=== PATIENT | male | born 1960 | race Caucasian/White ===

== ENCOUNTER 2016-09-23 12:17 | Observation (INO) | payer BC ==
[2016-09-16 10:15] VITALS: BMI 25.5
[~2016-09-23 12:17] MED LIST: ASPIRIN 325 MG TAB PO ONE; SODIUM CHLORIDE 0.9% 1,000 ML in EMPTY BAG 1 BAG IV ONE
[2016-09-23] MEDS ORDERED: SODIUM CHLORIDE 0.9% 1,000 ML IV ONE (12:54)
[2016-09-23 12:55] LABS: Basophils % (A) 1 %; CH 32.4; CHCM 33.5; Eosinophils # (A) 0.3 k/uL (0-0.7); Eosinophils % (A) 4 %; HCT 46.5 % (39.0-53.0); HDW 2.55; HGB 15.5 gm/dL (13.0-17.5); Luc # (Auto) 0.16; Luc % (Auto) 2; Lymphocytes # (A) 2.5 k/uL (1.0-4.8); Lymphocytes % (A) 28 %; MCH 32.4 pg (25.0-35.0); MCHC 33.3 g/dL (31.0-37.0); MCV 97.2 fL (80.0-100.0); Mean Platelet Volume 6.6; Monocytes # (A) 0.4 k/uL (0-1.0); Monocytes % (A) 4 %; Neutrophils # (A) 5.7 k/uL (1.3-7.7); Neutrophils % (A) 62 %; RBC 4.78 m/uL (4.30-5.90); WBC 9.1 k/uL (3.8-10.6); WBC (Perox) 9.55
[2016-09-23 13:46] LABS: Anion Gap 11 mmol/L; Blood Urea Nitrogen 15 mg/dL (9-20); Calcium 9.1 mg/dL (8.4-10.2); Carbon Dioxide 25 mmol/L (22-30); Chloride 106 mmol/L (98-107); Glucose 89 mg/dL (74-99); Non-African American GFR(MDRD) >60 (>60 ml/min/1.73 sqM); Potassium 4.1 mmol/L (3.5-5.1); Sodium 142 mmol/L (137-145)
[2016-09-23] MEDS ORDERED: SODIUM CHLORIDE 0.9% 1,000 ML in EMPTY BAG 1 BAG IV ONE (17:11)
[2016-09-24] MEDS: ASPIRIN 325 MG TAB PO SCH (06:34)
[2016-09-24] MEDS ORDERED: IV FLUID CONTINUATION 1,000 ML IV ONE (07:45)
[2016-09-24] MEDS: MIDAZOLAM 2 MG/2 ML VIAL IV ONE ×2 (08:10→08:14)
[2016-09-24] MEDS: fentaNYL (PF) 50 MCG/ML 2 ML AMP IV ONE ×2 (08:12→09:12)
[2016-09-24] MEDS ORDERED: LIDOCAINE 2% INJ 20 MG/ML SQ ONE (08:12)
[2016-09-24] MEDS: hydrALAZINE HCL 20 MG/ML 1 ML VIAL IV ONE ×2 (08:31→09:10)
[2016-09-24] MEDS ORDERED: CLOPIDOGREL 75 MG TAB PO ONE (08:44)
[2016-09-24] MEDS ORDERED: MAG HYDROX/AL HYDROX/SIMETH 30 ML CUP PO ONE (09:07)
[2016-09-24] MEDS ORDERED: NITROGLYCERIN 1000MCG/10ML SYRINGE INTRAARTER ONE (09:15)
[2016-09-24] MEDS ORDERED: ONDANSETRON 4 MG/2 ML VIAL IVP ONE (09:27)
[2016-09-24] MEDS ORDERED: IODIXANOL 320 MG/ML 100 ML INTRAARTER ONE (09:28)
[2016-09-24] MEDS ORDERED: SODIUM CHLORIDE 0.9% 1,000 ML IV SCH (09:30)
[2016-09-24] MEDS ORDERED: HYDROmorphone 1 MG/ML 1 ML SYRINGE IVP PRN (09:42)
[2016-09-24] MEDS ORDERED: HYDROcodone/APAP 7.5-325MG 1 EACH TAB PO PRN (11:07)
[2016-09-24] MEDS: MAG HYDROX/AL HYDROX/SIMETH 30 ML CUP PO SCH ×3 (11:30→21:15)
[2016-09-24] MEDS: MULTIVITAMINS, THERA 1 EACH TAB PO SCH (11:30)
--- NOTE | 2016-09-24 14:44 | LTR ---
September 24, 2016 RE: Adonis Serra Dear Dr. Dias: Mr. Adonis Serra underwent successful atherectomy and balloon angioplasty of the left superficial femoral artery with a good angiographic result and without any complication. Thank you for allowing me to participate in his care and please do not hesitate to call if you have any questions or concerns. Sincerely, CONRAD CLEMENTE MD
--- NOTE | 2016-09-24 14:44 | PCN ---
DATE OF PROCEDURE: September 24, 2016. PERFORMING PHYSICIAN: Drake Villegas M.D., account receivable clerk. PROCEDURE PERFORMED: 1. Selective left common femoral artery angiogram. 2. Selective left superficial femoral artery angiogram. 3. Selective right common femoral artery angiogram. 4. An atherectomy of the left superficial femoral artery using the CSI device. 5. Successful balloon angioplasty of the left superficial femoral artery using 6.0 x 40 mm drug-coated balloon with a good angiographic results. INDICATION: This is a pleasant 56-year-old gentleman who was experiencing left leg discomfort consistent with intermittent claudication who underwent a peripheral angiogram a few years ago and that showed critical ostial left superficial femoral artery. He was brought today to undergo balloon angioplasty of the left SFA. Approach: Right common femoral artery. COMPLICATIONS: None. Level of sedation: Moderate. PROCEDURE DESCRIPTION: After obtaining informed consent, the patient was brought to the director of laboratory operations. The right common femoral artery was cannulated using micropuncture technique. The micropuncture wire passed easily, then I placed 6 Andorran sheath in the right common femoral artery. Subsequently did select the left SFA using an 0.035 advantage wire with a 5 Andorran rim catheter where I was able to advance advantage wire to the left profunda. Subsequently I did exchange my 11 cm 6 Andorran sheath into 55 cm 6 Andorran sheath using the advantage wire. The tip of the sheath was positioned in the left common femoral artery. At that point, anticoagulation was initiated using heparin and the patient was given a weight -based heparin, where he was given 8000 units of heparin IV. Also during the procedure he was given 600 mg of Plavix as well. Subsequently, I was able to cross the ostial left SFA using an 014 advantage wire with the back-up support of 0.014 QuickCross catheter. Subsequently, I exchanged my 0.14 advantage into a 014 ViperWire using 0.014 QuickCross catheter. Subsequently, I did multiple runs of rotational atherectomy using the CSI device. After that, I did balloon angioplasty using initially 6.0 x 40 mm AngioSculpt balloon which was inflated twice under its nominal pressure, subsequent I took 6.0 x 40 mm drug-coated balloon where the balloon was positioned under fluoroscopy guidance and the balloon inflated under its nominal pressure under 10 atmospheres for 3 minutes. The following angiogram showed non- flow-limiting dissection with a good angiographic result and residual stenosis of maybe 20% to 30% only. The procedure was completed at that point and then I did exchange my 55 cm 6 Andorran sheath into 11 cm 6 Andorran sheath using the advantage wire. Finally I did selective left common femoral artery angiogram. The procedure was completed without any complication. POSTPROCEDURE MANAGEMENT: 1. Dual antiplatelet therapy. 2. Risk factor modifications. 3. Follow up with the patient.
[2016-09-24] MEDS ORDERED: ATORVASTATIN 80 MG TAB PO SCH (21:00)
[2016-09-25 00:46] VITALS: RESP 18
[2016-09-25 06:45] LABS: Basophils % (A) 0 %; CHCM 34.1; Eosinophils # (A) 0.1 k/uL (0-0.7); Eosinophils % (A) 1 %; HCT 47.9 % (39.0-53.0); HDW 2.26; HGB 15.5 gm/dL (13.0-17.5); Luc # (Auto) 0.14; Luc % (Auto) 1; Lymphocytes # (A) 1.8 k/uL (1.0-4.8); Lymphocytes % (A) 14 %; MCH 31.4 pg (25.0-35.0); MCHC 32.3 g/dL (31.0-37.0); MCV 97.1 fL (80.0-100.0); Mean Platelet Volume 7.6; Monocytes # (A) 0.9 k/uL (0-1.0); Monocytes % (A) 7 %; Neutrophils # (A) 9.8 k/uL (1.3-7.7); Neutrophils % (A) 77 %; RBC 4.94 m/uL (4.30-5.90); RDW 12.9 % (11.5-15.5); WBC 12.8 k/uL (3.8-10.6); WBC (Perox) 12.38
[2016-09-25 06:53] LABS: Anion Gap 11 mmol/L; Blood Urea Nitrogen 9 mg/dL (9-20); Calcium 9.1 mg/dL (8.4-10.2); Carbon Dioxide 24 mmol/L (22-30); Chloride 106 mmol/L (98-107); Glucose 112 mg/dL (74-99); Non-African American GFR(MDRD) >60 (>60 ml/min/1.73 sqM); Potassium 4.3 mmol/L (3.5-5.1); Sodium 141 mmol/L (137-145)
[2016-09-25] MEDS ORDERED: NON-FORMULARY DRUG (Aspirin Ec 325 MG) PO SCH (09:00)
[2016-09-25] MEDS ORDERED: CLOPIDOGREL 75 MG TAB PO SCH (09:00)
[2016-09-25] MEDS: MAG HYDROX/AL HYDROX/SIMETH 30 ML CUP PO SCH ×2 (09:34→09:36)
[2016-09-25] MEDS: MULTIVITAMINS, THERA 1 EACH TAB PO SCH (09:34)
[2016-09-25] MEDS: ASPIRIN 325 MG TAB PO SCH (09:34)
[2016-09-25 13:12] VITALS: BP 132/88; PULSE 94; TEMP 98
--- NOTE | 2016-09-25 16:50 | IR ---
EXAMINATION TYPE: IR charter boat captain femoral popliteal DATE OF EXAM: 09/24/2016 9:51 AM COMPARISON: NONE HISTORY: Peripheral vascular disease Fluoroscopy support supplied to the referring clinician. See dictated report from the cardiology, 16 .7 minutes fluoroscopy time, 237 intraoperative C-arm images document the procedure
--- NOTE | 2016-09-26 09:42 | DS ---
DATE OF ADMISSION: 09/23/2016 DATE OF DISCHARGE: 09/25/2016 BRIEF HISTORY: This is a pleasant 56-year-old gentleman who was experiencing severe left leg discomfort consistent with claudication and underwent a peripheral angiogram which showed critical left ostial left SFA. He was admitted to the hospital yesterday and underwent successful atherectomy and balloon angioplasty of the left SFA with a good angiographic result and without any complication. On follow-up with him today, he seems to be doing good. The right groin is soft and nontender and without any bruises. The patient is going to be discharged home on dual antiplatelet therapy and I will follow up with the patient as an outpatient.
== END 2016-09-25 13:19 | disposition home or self-care (01) ==
LOC: CATHCVL 12:17 → 6SEL 12:18
PROVIDERS: ADMIT Internal Medicine Interventional Cardiology; ATTEND Internal Medicine Interventional Cardiology
DX: I73.9 Peripheral vascular disease, unspecified (principal); I87.8 Other specified disorders of veins; F17.210 Nicotine dependence, cigarettes, uncomplicated; E78.5 Hyperlipidemia, unspecified
CPT/HCPCS: 37225 ×2; 80048 ×2; 85025 ×2; G0378 ×3; C1894 ×2; C1769 ×7; C1714; C1725; C1887; C2623; J2001; J2250; J0360; Q9967; J2405; J3010; J1170; J1644

== ENCOUNTER → 2016-12-07 | Outpatient (CLI) | payer BC ==
--- NOTE | 2016-12-07 16:15 | MR ---
EXAMINATION TYPE: MR lumbar spine wo con DATE OF EXAM: 12/07/2016 11:08 AM COMPARISON: NONE HISTORY: Back pain TECHNIQUE: Multiplanar, multisequence images of the lumbar spine were acquired. T12-L1: There is a central posterior disc herniation causing anterior mass effect on the thecal sac. No significant foraminal encroachment. L1-L2: Broad-based posterior disc bulge causes mild anterior mass effect on the thecal sac. Facet art hropathy causes posterior lateral mass effect on the thecal sac. No significant central stenosis or f oraminal encroachment. L2-L3: Eccentric disc bulge towards the left causes anterolateral mass effect on the thecal sac. Ther e is some facet arthropathy. No significant central stenosis or foraminal encroachment. L3-L4: Posterior broad-based disc bulge causes mild anterior mass effect on the thecal sac. There is facet arthropathy with hypertrophy of the ligamentum flavum resulting in lateral recess stenosis. Sterling e mild foraminal encroachment is present right greater than left. No significant central stenosis. L4-L5: Broad-based posterior disc bulge causes minimal anterior mass effect on the thecal sac. There are facet arthropathy changes. No significant central canal stenosis. The spinal curvature may contri bute with some right-sided extension of endplate disc complex results in foraminal encroachment. L5-S1: Posterior central disc herniation causes contact with the anterior thecal sac, there is latera l extension of endplate disc complex causing foraminal encroachment right greater than left. Lumbar segments are intact. No paraspinal masses are identified. Conus medullaris has a normal appe arance. There is loss of disc height at the intervertebral levels, loss of disc signal is present wit h associated vacuum phenomenon, there is multilevel spondylosis with endplate discogenic marrow signa l change. There is a spinal curvature present. The conus is at T12-L1 shows an unremarkable appearanc e. IMPRESSION: Degenerative disc disease, facet arthropathy, scoliosis, foraminal encroachment as described.
== END | disposition home or self-care (01) ==
LOC: RADMRIMAIN 10:26
PROVIDERS: ATTEND Internal Medicine
DX: M51.36 Other intervertebral disc degeneration, lumbar region (principal); M46.96 Unspecified inflammatory spondylopathy, lumbar region; M41.9 Scoliosis, unspecified
CPT/HCPCS: 72148

== ENCOUNTER 2016-12-18 09:00 | Day surgery (SDC) | payer BC ==
[2016-12-15 17:33] VITALS: BMI 35.6
[~2016-12-18 09:00] MED LIST changes: +ALPRAZolam 0.25 MG TAB PO PRN; -ASPIRIN 325 MG TAB PO ONE; +ASPIRIN 325 MG TAB PO STA
[2016-12-18 09:19] VITALS: TEMP 98.1
[2016-12-18 09:32] LABS: Basophils # (A) 0.1 k/uL (0-0.2); Basophils % (A) 1 %; CH 32.5; CHCM 33.8; Eosinophils # (A) 0.2 k/uL (0-0.7); Eosinophils % (A) 3 %; HDW 2.29; HGB 15.1 gm/dL (13.0-17.5); Luc # (Auto) 0.14; Luc % (Auto) 2; Lymphocytes # (A) 1.7 k/uL (1.0-4.8); Lymphocytes % (A) 25 %; MCH 31.7 pg (25.0-35.0); MCHC 32.8 g/dL (31.0-37.0); MCV 96.6 fL (80.0-100.0); Mean Platelet Volume 7.3; Monocytes # (A) 0.3 k/uL (0-1.0); Monocytes % (A) 5 %; Neutrophils # (A) 4.3 k/uL (1.3-7.7); Neutrophils % (A) 64 %; RBC 4.76 m/uL (4.30-5.90); WBC 6.8 k/uL (3.8-10.6); WBC (Perox) 7.36
[2016-12-18 09:39] LABS: Anion Gap 9 mmol/L; Blood Urea Nitrogen 16 mg/dL (9-20); Calcium 9.1 mg/dL (8.4-10.2); Carbon Dioxide 23 mmol/L (22-30); Chloride 112 mmol/L (98-107); Glucose 97 mg/dL (74-99); Non-African American GFR(MDRD) >60 (>60 ml/min/1.73 sqM); Potassium 4.4 mmol/L (3.5-5.1); Sodium 144 mmol/L (137-145)
[2016-12-18] MEDS ORDERED: MIDAZOLAM 2 MG/2 ML VIAL IV ONE (11:31)
[2016-12-18] MEDS ORDERED: LIDOCAINE 2% INJ 20 MG/ML SQ ONE (11:38)
[2016-12-18] MEDS ORDERED: VERAPAMIL SYRINGE (5 MG/10 ML) INTRAARTER ONE (11:44)
[2016-12-18] MEDS ORDERED: IODIXANOL 320 MG/ML 100 ML INTRAARTER ONE (12:00)
[2016-12-18] MEDS ORDERED: SODIUM CHLORIDE 0.9% 1,000 ML IV SCH (12:15)
[2016-12-18 13:21] VITALS: RESP 16
[2016-12-18 16:36] VITALS: BP 153/88; PULSE 65
--- NOTE | 2016-12-18 21:59 | LTR ---
December 18, 2016 RE: Adonis Serra Dear Dr. Dias: Mr. Adonis Serra underwent a peripheral angiogram which showed heavy calcified and severe lesion involving the right common femoral artery and radiating behind his right leg discomfort and numbness. I want to schedule the patient to undergo an atherectomy and balloon angioplasty of the lesion. Thank you for allowing me to participate in his care and please do not hesitate to call if you have any questions or concerns. Sincerely, CONRAD CLEMENTE MD
--- NOTE | 2016-12-18 22:05 | PCN ---
DATE OF PROCEDURE: 12/18/2016 PERFORMING PHYSICIAN: Drake Villegas M.D., supervisor type photography. PROCEDURES PERFORMED: 1. Abdominal aortogram. 2. Bilateral lower extremity runoff. INDICATION: This is a pleasant 56-year-old gentleman who sees Dr. Zeke Nelson as an outpatient who underwent successful angioplasty of the left SFA in the past. He continues to have right leg discomfort. On physical examination I could ( ) feel good pulse in the right leg and he was brought today for peripheral angiogram. APPROACH: Right radial artery. COMPLICATIONS: None. LEVEL OF SEDATION: Moderate with sedation for length of half an hour. PROCEDURE DESCRIPTION: After obtaining informed consent, the patient was brought to the cardiac laborer tan house. The right radial artery was cannulated using micropuncture technique. The micropuncture wire passed easily, then I placed a 5 Bermudian sheath in the right radial artery. Subsequently I did an abdominal aortogram and bilateral lower extremity runoff using 5 Bermudian pigtail catheter, which was initially placed at the level of the renal arteries, then it was advanced into above the bifurcation of the aorta to right and left common iliac arteries. The procedure was completed without any complication. SELECTIVE PERIPHERAL ANGIOGRAM: 1. Abdominal aorta appeared to have mild disease only. 2. Common iliac arteries. The right and left common iliac arteries appear to have mild disease only. 3. Internal iliac arteries. The right and left internal iliac arteries appear to have mild disease only. 4. External iliac arteries. The right and left external iliac arteries appear to have mild disease only. 5. Common femoral arteries. The right common femoral artery appeared to have an eccentric calcified lesion in the range of 80%. The left common femoral artery appeared to have mild disease only. 6. SFA. The right SFA appeared to have mild to moderate diffuse disease and the left SFA appeared to have mild disease as well. 7. Popliteals. The right and left popliteals appeared to have mild disease only. 8. Below the knee. There is 3-vessel runoff below the knee bilaterally. CONCLUSION: 1. Calcified eccentric lesion that seems to be severe involving the right common femoral artery. 2. Patent proximal left SFA after balloon angioplasty and atherectomy. POST-PROCEDURE MANAGEMENT: The patient will be scheduled to undergo an atherectomy and balloon angioplasty of the right common femoral artery.
--- NOTE | 2016-12-24 15:43 | IR ---
EXAMINATION TYPE: IR angio abdominal w runoff DATE OF EXAM: 12/18/2016 12:22 PM COMPARISON: NONE HISTORY: Left leg pain TECHNIQUE: Fluoroscopy. FINDINGS: Fluoroscopic guidance was provided during procedure performed by Dr. Steele. A total of 8. 8 minutes of fluoroscopic time was utilized during the procedure and multiple spot images was acquire d. IMPRESSION: Documentation of fluoroscopy. Please see report from cardiology.
== END 2016-12-18 17:03 | disposition home or self-care (01) ==
LOC: CATHCVL 09:00
PROVIDERS: ATTEND Internal Medicine Interventional Cardiology
DX: I70.211 Atherosclerosis of native arteries of extremities with intermittent claudication, right leg (principal); E78.5 Hyperlipidemia, unspecified; F17.210 Nicotine dependence, cigarettes, uncomplicated; Z79.82 Long term (current) use of aspirin; Z79.899 Other long term (current) drug therapy; Z79.02 Long term (current) use of antithrombotics/antiplatelets; Z79.891 Long term (current) use of opiate analgesic
CPT/HCPCS: 36200; 75625; 75716; 80048; 85025; 99152; 99153; C1894; J2001; J2250; Q9967; J1644

== ENCOUNTER 2016-12-23 10:55 | Day surgery (SDC) | payer BC ==
[2016-12-22 11:26] VITALS: BMI 25.0
[~2016-12-23 10:55] MED LIST changes: -ALPRAZolam 0.25 MG TAB PO PRN; -ASPIRIN 325 MG TAB PO STA
[2016-12-23] MEDS ORDERED: MIDAZOLAM 2 MG/2 ML VIAL IV ONE (12:05)
[2016-12-23] MEDS ORDERED: LIDOCAINE 2% INJ 20 MG/ML SQ ONE (12:11)
[2016-12-23] MEDS ORDERED: CLOPIDOGREL 75 MG TAB PO ONE (12:47)
[2016-12-23] MEDS ORDERED: IODIXANOL 320 MG/ML 100 ML INTRAARTER ONE (12:50)
[2016-12-23] MEDS ORDERED: SODIUM CHLORIDE 0.9% 1,000 ML IV SCH (13:30)
[2016-12-23] MEDS ORDERED: hydrALAZINE HCL 20 MG/ML 1 ML VIAL ONE (14:42)
[2016-12-23] MEDS ORDERED: hydrALAZINE HCL 20 MG/ML 1 ML VIAL IV ONE (14:47)
[2016-12-23] MEDS ORDERED: HYDROmorphone 1 MG/ML 1 ML SYRINGE ONE (15:11)
[2016-12-23] MEDS ORDERED: HYDROmorphone 1 MG/ML 1 ML SYRINGE IVP PRN (15:13)
[2016-12-23] MEDS ORDERED: ATORVASTATIN 40 MG TAB PO SCH (21:00)
[2016-12-24 06:30] LABS: Non-African American GFR(MDRD) >60 (>60 ml/min/1.73 sqM)
--- NOTE | 2016-12-24 06:49 | PCN ---
DATE OF PROCEDURE: 12/23/2016 PERCUTANEOUS PERIPHERAL INTERVENTION PERFORMING PHYSICIAN: Drake Villegas MD, composition instructor. PROCEDURE PERFORMED: 1. Selective right common femoral artery angiogram. 2. An atherectomy of the right common femoral artery using the CSI device. 3. Successful balloon angioplasty of the right common femoral artery using 7.0 x 40 mm drug-coated balloon with a good angiographic result. 4. Selective left common femoral artery angiogram. INDICATION: This is a pleasant 56-year-old male patient who was experiencing right leg discomfort consistent with intermittent claudication. He underwent a peripheral angiogram a few weeks ago and that showed heavily calcified eccentric lesion involving the right common femoral artery. The patient was brought today to undergo a balloon angioplasty of the right common femoral artery. APPROACH: Left common femoral artery. COMPLICATIONS: None. LEVEL OF SEDATION: Moderate. PROCEDURE DESCRIPTION: After obtaining an informed consent, the patient was brought to the cardiac clinical lab specialist. The left common femoral artery was cannulated using micropuncture technique. Micropuncture wire passed easily. Then I placed 6-Kosovan sheath in the left common femoral artery. Subsequently, I did selective right SFA using an 0.035 advantage wire with a 5-Kosovan rim catheter. After that, I did exchange my 11 cm 6-Kosovan sheath into 70 cm 6-Kosovan sheath over the advantage wire where the tip of the sheath was positioned in the right external iliac artery. After that, I did exchange my 0.035 advantage wire into an 0.014 ViperWire preparing for atherectomy. Anticoagulation was initiated using heparin. The patient was given 8000 units of heparin IV. After that, I did multiple runs of rotational atherectomy of the right common femoral artery using the CSI device. After that, I did balloon angioplasty using an AngioSculpt, which was 6.0 x 40 then I used drug-coated balloon which was 7.0 x 40 mm drug-coated balloon. The following angiogram showed an excellent angiographic result. After that, I did exchange my 70 cm a 6-Kosovan sheath into 11 cm 6-Kosovan sheath over the advantage wire. I did selective left common femoral artery angiogram before the procedure was completed. POSTPROCEDURE MANAGEMENT: 1. Dual antiplatelet therapy. 2. Risk factor modifications. 3. Will follow up with the patient.
--- NOTE | 2016-12-24 06:51 | LTR ---
December 23, 2016 ELIZABETH DIAS MD RE: Adonis Serra Dear Dr. Dias: Mr. Lamb Maryse underwent successful balloon angioplasty of the right femoral artery with a good angiographic result and without any complication. Thank you for allowing me to participate in his care and please do not hesitate to call if you have any question or concern. Sincerely, CONRAD CLEMENTE MD
[2016-12-24] MEDS ORDERED: CLOPIDOGREL 75 MG TAB PO SCH (09:00)
[2016-12-24] MEDS ORDERED: ASPIRIN 325 MG TAB PO SCH (09:00)
[2016-12-24] MEDS ORDERED: traMADol 50 MG TAB PO SCH (09:00)
[2016-12-24 09:30] LABS: CH 32.1; CHCM 33.2; HCT 43.6 % (39.0-53.0); HDW 2.23; HGB 14.9 gm/dL (13.0-17.5); MCH 33.3 pg (25.0-35.0); MCHC 34.3 g/dL (31.0-37.0); MCV 97.2 fL (80.0-100.0); Mean Platelet Volume 7.1; RBC 4.48 m/uL (4.30-5.90); RDW 13.3 % (11.5-15.5); WBC 8.8 k/uL (3.8-10.6)
[2016-12-24 09:38] LABS: Anion Gap 9 mmol/L; Blood Urea Nitrogen 14 mg/dL (9-20); Calcium 9.4 mg/dL (8.4-10.2); Carbon Dioxide 22 mmol/L (22-30); Chloride 107 mmol/L (98-107); Glucose 105 mg/dL (74-99); Potassium 4.5 mmol/L (3.5-5.1); Sodium 138 mmol/L (137-145)
[2016-12-24 10:29] VITALS: BP 130/70; PULSE 87; RESP 18; TEMP 97.4
--- NOTE | 2016-12-24 10:32 | P.DS ---
Providers Date of admission: December 232016 Attending physician: Drake Villegas Primary care physician: [facility] Course: This is a pleasant 56-year-old gentleman who was admitted to the hospital yesterday and underwent successful atherectomy and balloon angioplasty of the right common femoral artery with a good angiographic results and without any complication. The procedure was performed from the left groin which seems to be slightly bruised because the patient developed hematoma yesterday. There is no discrete hematoma was seen today. The groin is not tender at all. The patient is going to be discharged home on dual antiplatelet therapy and I will follow-up with him in the office next week. Plan - Discharge Summary Discharge Medication List Multivitamins, Thera [Multivitamin (formulary)] 1 tab PO DAILY 09/10/16 [History ] Aspirin EC [Ecotrin] 325 mg PO DAILY 09/23/16 [History] Clopidogrel [Plavix] 75 mg PO DAILY #90 tab 09/25/16 [Rx] Ibuprofen [Motrin] 800 mg PO TID PRN 12/15/16 [History] traMADol HCl [Ultram] 50 mg PO DAILY 12/15/16 [History] Atorvastatin [Lipitor] 40 mg PO HS 12/22/16 [History] Follow up Appointment(s)/Referral(s): Drake Villegas MD [STAFF PHYSICIAN] - 01/04/17 4:30 pm Patient Instructions/Handouts: *Surgery [facility] - After Heart Catheterization - Risk Investigator Instructions, Peripheral Vascular Stent Placement (DC)
[2016-12-24] MEDS ORDERED: MULTIVITAMINS, THERA 1 EACH TAB PO SCH (12:00)
--- NOTE | 2016-12-24 15:42 | IR ---
EXAMINATION TYPE: IR travel pta femoral popliteal DATE OF EXAM: 12/23/2016 1:14 PM COMPARISON: NONE HISTORY: Left leg pain TECHNIQUE: Fluoroscopy. FINDINGS: Fluoroscopic guidance was provided during procedure performed by Dr. Steele. A total of 8. 8 minutes of fluoroscopic time was utilized during the procedure and multiple spot images was acquire d. Images demonstrate percutaneous balloon angioplasty. IMPRESSION: Documentation of fluoroscopy. Please see report from cardiology.
== END 2016-12-24 10:54 | disposition home or self-care (01) ==
LOC: CATHCVL 10:55 → 6SEL 16:08 → CATHCVL 12-24 10:54
PROVIDERS: ATTEND Internal Medicine Interventional Cardiology
DX: I70.211 Atherosclerosis of native arteries of extremities with intermittent claudication, right leg (principal); F17.210 Nicotine dependence, cigarettes, uncomplicated; E78.5 Hyperlipidemia, unspecified; Z79.02 Long term (current) use of antithrombotics/antiplatelets; Z79.82 Long term (current) use of aspirin; Z79.1 Long term (current) use of non-steroidal anti-inflammatories (NSAID); Z79.891 Long term (current) use of opiate analgesic; Z79.899 Other long term (current) drug therapy
CPT/HCPCS: 37225; 80048; 85027; 99152; 99153 ×2; C1894 ×2; C1714; C1769 ×6; C1725; C1887; C2623; J2001; J2250; J0360; Q9967; J1170; J1644

== ENCOUNTER → 2018-01-20 | Outpatient (CLI) | payer BC ==
--- NOTE | 2018-01-20 14:24 | XR ---
EXAMINATION TYPE: XR chest 2V DATE OF EXAM: 01/20/2018 COMPARISON: NONE HISTORY: Cough and congestion for one week TECHNIQUE: Frontal and lateral views of the chest are obtained. FINDINGS: There is no focal air space opacity, pleural effusion, or pneumothorax seen. The cardiac silhouette size is within normal limits. The osseous structures are intact. Mild multilevel degener ative changes of the thoracic spine are noted. IMPRESSION: No acute cardiopulmonary process.
== END | disposition home or self-care (01) ==
LOC: RADXRYALE 13:15
PROVIDERS: ATTEND Internal Medicine
DX: J20.9 Acute bronchitis, unspecified (principal)
CPT/HCPCS: 71046

== ENCOUNTER → 2018-04-22 | Day surgery (SDC) | payer BC ==
[2018-04-20 12:22] VITALS: BMI 26.3
[~2018-04-22] MED LIST changes: +LACTATED RINGERS 1,000 ML IV SCH; +LIDOCAINE 1% 20 ML VIAL (10MG/ML) FOR IV START INTRADERMA ONE; +PROPOFOL 10 MG/ML 20 ML VIAL IV ONE; -SODIUM CHLORIDE 0.9% 1,000 ML in EMPTY BAG 1 BAG IV ONE
[2018-04-22 10:46] VITALS: RESP 16; TEMP 98.6
--- NOTE | 2018-04-22 11:46 | P.PCN ---
Date of Procedure: 04/22/18 Procedure(s) Performed: BRIEF HISTORY: Patient is a 57-year-old pleasant, white male, scheduled for an elective colonoscopy as a part of evaluation of prior history of colon polyps. Last colonoscopy was 3 years ago. PROCEDURE PERFORMED: Colonoscopy with snare polypectomy. PREOPERATIVE DIAGNOSIS: History of colon polyps. IV sedation per Anesthesia. PROCEDURE: After informed consent was obtained, the patient, was brought into the endoscopy unit. IV sedation was administered by Anesthesia under continuous monitoring. Digital rectal examination was normal. Initially the Olympus CF- 160 flexible video colonoscope was then inserted in the rectum, gradually advanced into the cecum without any difficulty. Careful examination was performed as the scope was gradually being withdrawn. Ileocecal valve and the appendiceal orifice were visualized and appeared normal. Prep was excellent. Mucosa of the cecum, appeared normal. In the ascending colon there was a 1 cm flat polyp removed by snare polypectomy. The rest of the ascending colon, transverse colon, descending colon, appeared normal. In the sigmoid colon there was a 5 mL polyp that was removed by snare polypectomy. Rest of the sigmoid colon, and rectum appeared normal. Retroflexion was performed in the rectum and no lesions were seen. The patient tolerated the procedure well. IMPRESSION: 1 cm flat ascending colon polyp status post polypectomy 5 mm sessile sigmoid colon polyp status post polypectomy RECOMMENDATIONS: Findings of this examination were discussed with the patient as well as his family. He was advised to follow with the biopsy results. If the biopsy shows a tubular adenoma he can have a repeat colonoscopy in 3-5 years.
[2018-04-22 12:09] VITALS: BP 163/110; PULSE 83
== END ==
LOC: ORWHC2ENDO 09:21
PROVIDERS: ATTEND Internal Medicine Gastroenterology
DX: Z12.11 Encounter for screening for malignant neoplasm of colon (principal); K63.5 Polyp of colon; Z86.010 Personal history of colon polyps; Z79.02 Long term (current) use of antithrombotics/antiplatelets; Z79.82 Long term (current) use of aspirin; E78.5 Hyperlipidemia, unspecified; Z98.62 Peripheral vascular angioplasty status; F17.200 Nicotine dependence, unspecified, uncomplicated; Z79.899 Other long term (current) drug therapy
CPT/HCPCS: 88305; 45385; J2704

== ENCOUNTER 2019-06-07 07:10 | Day surgery (SDC) | payer BC ==
[2019-06-02 10:33] VITALS: BMI 26.9
[~2019-06-07 07:10] MED LIST changes: -LACTATED RINGERS 1,000 ML IV SCH; -LIDOCAINE 1% 20 ML VIAL (10MG/ML) FOR IV START INTRADERMA ONE; -PROPOFOL 10 MG/ML 20 ML VIAL IV ONE; +SODIUM CHLORIDE 0.9% 1,000 ML in EMPTY BAG 1 BAG IV ONE
[2019-06-07] MEDS ORDERED: ASPIRIN 325 MG TAB ONE (07:38)
[2019-06-07] MEDS ORDERED: ALPRAZolam 0.25 MG TAB ONE (07:38)
[2019-06-07 08:06] VITALS: RESP 16; TEMP 98.2
[2019-06-07 08:13] LABS: Basophils # (A) 0.1 k/uL (0-0.2); Basophils % (A) 1 %; Eosinophils # (A) 0.3 k/uL (0-0.7); Eosinophils % (A) 5 %; HCT 43.7 % (39.0-53.0); Lymphocytes # (A) 1.6 k/uL (1.0-4.8); Lymphocytes % (A) 21 %; MCH 31.9 pg (25.0-35.0); MCHC 34.3 g/dL (31.0-37.0); MCV 93.2 fL (80.0-100.0); Mean Platelet Volume 6.4; Monocytes # (A) 0.5 k/uL (0-1.0); Monocytes % (A) 6 %; Neutrophils % (A) 65 %; Platelet Count 246 k/uL (150-450); RBC 4.69 m/uL (4.30-5.90); RDW 13.3 % (11.5-15.5); WBC 7.7 k/uL (3.8-10.6)
[2019-06-07 08:28] LABS: African American GFR (CKD) >90 (>60 ml/min/1.73 sqM); Anion Gap 10 mmol/L; Blood Urea Nitrogen 18 mg/dL (9-20); Calcium 9.4 mg/dL (8.4-10.2); Carbon Dioxide 24 mmol/L (22-30); Chloride 106 mmol/L (98-107); Glucose 102 mg/dL (74-99); Potassium 4.5 mmol/L (3.5-5.1); Sodium 140 mmol/L (137-145)
[2019-06-07] MEDS ORDERED: MIDAZOLAM (PF) 2 MG/2 ML VIAL IV ONE (08:34)
[2019-06-07] MEDS ORDERED: LIDOCAINE 1% INJ 10MG/ML (20 ML MDV) SQ ONE (08:36)
[2019-06-07] MEDS ORDERED: IOPAMIDOL-250 100ML BTL INTRAARTER ONE (08:45)
--- NOTE | 2019-06-07 08:57 | P.PCN ---
Date of Procedure: 06/07/19 Operative Findings: AN ABDOMINAL AORTOGRAM AND BILATERAL LOWER EXTREMITIES RUNOFF PERFORMING PHYSICIAN: Drake Villegas MD PROCEDURE PERFORMED: 1. An abdominal aortogram 2. Bilateral lower extremities runoff INDICATION: This is a pleasant 58-year-old gentleman with known peripheral arterial disease and prior intervention on the right common femoral artery as well as left superficial femoral artery in the past was experiencing symptoms of right leg intermittent claudication. He underwent an arterial duplex study which revealed severe disease involving the right common femoral artery. I was brought today to undergo an aortogram with runoff for more clarification. COMPLICATION: None LEVEL OF SEDATION: Moderate was sedation length of 15 minutes APPROACH: Left common femoral artery PROCEDURE DESCRIPTION: After obtaining informed consent and explaining the procedure benefits, risks, and complications, the patient was brought to the cardiac ammunition assembly ii laborer. The left groin was prepped and draped in sterile fashion. The left common femoral artery was cannulated using micropuncture technique, under ultrasound guidance. A micropuncture wire was advanced, and the micropuncture sheath was advanced over the wire, then the micropuncture sheath was exchanged over an 0.35 wire into a 5-Angolan sheath dilator assembly then the wire and dilator were removed and sheath was flushed. We did an abdominal aortogram and bilateral lower extremities runoff using 5- Angolan pigtail catheter using a power injection. The catheter was initially placed at the level of the renal arteries, and it was pulled into above the bifurcation of the aorta into right and left common iliac arteries. The procedure was completed and there was no complications. SELECTIVE PERIPHERAL ANGIOGRAM: The abdominal aorta: Appeared to be angiographically normal. The common iliac arteries: Both are angiographically normal. The external iliac arteries: Both are angiographically normal. The internal iliac arteries: Both are patent. The common femoral arteries: The right common femoral artery has a critical calcified and eccentric lesion. The left common femoral artery is calcified with intermediate lesion only. Superficial femoral arteries: Both SFA have mild disease only. Popliteal arteries: Both popliteal are patent. Below the knees: There are 3 vessels run off below the knee bilaterally. CONCLUSION: #1 critical disease involving the right common femoral artery with eccentric and calcified lesion. #2 intermediate disease involving the left common femoral artery POSTPROCEDURE MANAGEMENT: #1 the patient is going to be discharged home later on today. #2 follow-up with the patient in the office next week #3 right common femoral artery revascularization, probably surgically.
[2019-06-07] MEDS ORDERED: SODIUM CHLORIDE 0.9% 1,000 ML IV SCH (09:00)
[2019-06-07] MEDS ORDERED: hydrALAZINE HCL 20 MG/ML 1 ML VIAL ONE (10:12)
[2019-06-07] MEDS ORDERED: ENALAPRILAT 1.25 MG/ML 1 ML VIAL ONE (10:12)
[2019-06-07] MEDS ORDERED: HYDROcodone/APAP 10-325MG 1 EACH TAB PO ONE (11:05)
[2019-06-07 14:45] VITALS: BP 130/72; PULSE 87
--- NOTE | 2019-06-08 15:54 | IR ---
Fluoroscopy HISTORY: Pain in right leg 0.6 minutes fluoroscopy time supplied to the referring clinician. 97 intraoperative C-arm images doc ument the procedure. See dictated report from cardiology.
== END 2019-06-07 14:45 | disposition home or self-care (01) ==
LOC: CATHCVL 07:10
PROVIDERS: ATTEND Internal Medicine Interventional Cardiology
DX: I70.213 Atherosclerosis of native arteries of extremities with intermittent claudication, bilateral legs (principal); I25.10 Atherosclerotic heart disease of native coronary artery without angina pectoris; E78.5 Hyperlipidemia, unspecified; F17.210 Nicotine dependence, cigarettes, uncomplicated; Z79.82 Long term (current) use of aspirin; Z79.899 Other long term (current) drug therapy; Z79.02 Long term (current) use of antithrombotics/antiplatelets
CPT/HCPCS: 36200; 75625; 75716; 76937; 80048; 85025; C1769 ×4; C1894; J0360; J2001; Q9966; J2250

== ENCOUNTER → 2020-06-18 | Outpatient (CLI) | payer OTHER | END | disposition home or self-care (01) | LOC: LABWHC1 10:28 | PROVIDERS: ATTEND Internal Medicine | DX: R05 Cough (principal) | CPT/HCPCS: U0003; C9803 ==

== ENCOUNTER → 2020-09-26 | Outpatient (CLI) | payer OTHER ==
--- NOTE | 2020-09-26 11:28 | MR ---
EXAMINATION TYPE: MR knee RT wo con DATE OF EXAM: 09/26/2020 COMPARISON: X-ray 09/03/2020 HISTORY: R knee pain TECHNIQUE: Multiplanar, multisequence imaging of the right knee is performed without IV contrast. FINDINGS: There is grade 3 abnormal signal involving the posterior horn of the medial meniscus compat ible with a complex tear. There is a cyst seen along the posterior margin of the posterior medial fem oral condyle with septation measuring 1.7 cm which may be within the bursa or possibly ganglion cyst. There is narrowing of the medial compartment of the knee joint and patellofemoral joint. There is gra de III chondromalacia of the medial femoral articular cartilage. Lateral meniscus is intact. Anterior cruciate and posterior cruciate ligaments intact. Medial collateral and lateral collateral ligaments intact. Posterior to the upper margin of the lateral femoral condyle there is multiple tiny cystic structures likely representing a 2.2 cm septated ganglion cyst. Fibrillation of the patellar cartilage seen with no sizable. Patellar and quadriceps tendons are inta ct. Small amount of prepatellar soft tissue edema noted inferiorly. No evidence of marrow edema or contusion. No acute fracture. IMPRESSION: 1. Complex tear posterior horn medial meniscus. 2. 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 Sma ll cystic structure measuring 1.7 cm with septation along the posterior margin of the medial femoral condyle may represent a small ganglion cyst or fluid within the bursa. 3. Patellofemoral attachment of the lateral gastrocnemius there is a 2.2 cm septated fluid collection likely related to a ganglion cyst.
== END | disposition home or self-care (01) ==
LOC: RADMRIMAIN 09:39
PROVIDERS: ATTEND Orthopaedic Surgery
DX: S83.241A Other tear of medial meniscus, current injury, right knee, initial encounter (principal); M17.11 Unilateral primary osteoarthritis, right knee; M94.261 Chondromalacia, right knee; M25.861 Other specified joint disorders, right knee

== ENCOUNTER → 2020-10-24 | Outpatient (CLI) | payer OTHER ==
[2020-10-24 08:57] LABS: Basophils # (A) 0.1 k/uL (0-0.2); Basophils % (A) 1 %; Eosinophils # (A) 0.1 k/uL (0-0.7); Eosinophils % (A) 2 %; HCT 52.4 % (39.0-53.0); HGB 17.3 gm/dL (13.0-17.5); Lymphocytes # (A) 1.9 k/uL (1.0-4.8); Lymphocytes % (A) 24 %; MCH 31.8 pg (25.0-35.0); MCHC 33.1 g/dL (31.0-37.0); MCV 95.9 fL (80.0-100.0); Mean Platelet Volume 6.7; Monocytes # (A) 0.5 k/uL (0-1.0); Monocytes % (A) 6 %; Neutrophils # (A) 5.2 k/uL (1.3-7.7); Neutrophils % (A) 65 %; Platelet Count 245 k/uL (150-450); RBC 5.46 m/uL (4.30-5.90); RDW 12.9 % (11.5-15.5); WBC 7.9 k/uL (3.8-10.6)
== END | disposition home or self-care (01) ==
LOC: LABWHC1 07:43
PROVIDERS: ATTEND Orthopaedic Surgery
DX: M23.91 Unspecified internal derangement of right knee (principal)
CPT/HCPCS: 36415; 80051; 85025; 93005

== ENCOUNTER 2020-11-06 07:55 | Day surgery (SDC) | payer OTHER ==
[2020-10-30 10:53] VITALS: BMI 28.8
--- NOTE | 2020-11-05 14:52 | HP ---
HISTORY AND PHYSICAL Surgery is scheduled for 11/06/2020. Adonis Serra is a 60-year-old gentleman seen with progressive right knee pain. We discussed options for treatment. He elected to proceed with arthroscopy. Consent was obtained. PAST MEDICAL HISTORY: Hyperlipidemia. PAST SURGICAL HISTORY: Oral surgery. DAILY MEDICATIONS: Atorvastatin. ALLERGIES: None. SOCIAL HISTORY: Smokes 1 pack of cigarettes daily. PHYSICAL EVALUATION OF RIGHT KNEE: Range of motion is -2 to 125. Mild effusion. Tenderness along the medial and lateral joint lines. Positive medial Gay's. Ligaments stable. Hip rotation without pain. Distal neurovascular exam is intact. Right knee radiographs reveal mild osteoarthritis. MRI right knee revealed a complex medial meniscal tear. IMPRESSION: 1. Internal derangement, right knee with medial meniscal tear. 2. Hyperlipidemia. PLAN: Right knee arthroscopy with partial meniscectomy, partial synovectomy and debridement. MMODL / IJN: [id number] /
[~2020-11-06 07:55] MED LIST changes: +DEXAMETHASONE SOD PHOSPHATE 4 MG/ML 1 ML VIAL IV PRN; +LACTATED RINGERS 1,000 ML IV SCH; +LIDOCAINE 1% (10MG/ML) FOR IV START INTRADERMA PRN; +ONDANSETRON 4 MG/2 ML VIAL IVP PRN; -SODIUM CHLORIDE 0.9% 1,000 ML in EMPTY BAG 1 BAG IV ONE
[2020-11-06] MEDS ORDERED: LACTATED RINGERS 1,000 ML IV ONE ×2 (08:13)
[2020-11-06] MEDS ORDERED: fentaNYL (PF) 50 MCG/ML 2 ML AMP ONE (10:42)
[2020-11-06] MEDS ORDERED: PROPOFOL 10 MG/ML 20 ML VIAL IV ONE (10:42)
[2020-11-06] MEDS ORDERED: HYDROmorphone (PF) 1 MG/ML ONE (10:42)
[2020-11-06] MEDS ORDERED: MIDAZOLAM 2 MG/2 ML VIAL ONE (10:42)
[2020-11-06] MEDS ORDERED: SUCCINYLCHOLINE CHLORIDE 100 MG/5 ML SYR IV ONE (10:42)
[2020-11-06] MEDS ORDERED: LIDOCAINE 1% INJ 10MG/ML (20 ML MDV) ONE (10:42)
[2020-11-06] MEDS ORDERED: BUPIVACAINE (PF) 0.25% 30 ML VIAL SQ ONE (10:51)
--- NOTE | 2020-11-06 11:52 | P.OP ---
Date of Procedure: 11/06/20 Preoperative Diagnosis: Internal derangement right knee Postoperative Diagnosis: 1. Medial meniscal tear right knee 2. 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 Reactive synovitis medial, lateral and suprapatellar compartments right knee Procedure(s) Performed: 1. Arthroscopic partial medial meniscectomy right knee 2. Arthroscopic chondroplasty medial femoral condyle right knee 3. Arthroscopic microfracture medial femoral condyle right knee 4. Arthroscopic partial synovectomy medial, lateral and suprapatellar compartments right knee Anesthesia: JOSEA, local Surgeon: Masoud Christianson Estimated Blood Loss (ml): 7 Pathology: none sent Condition: stable Disposition: PACU Indications for Procedure: 60-year-old gentleman seen with progressive right knee pain. After treatment options were discussed, he elected to proceed with arthroscopy. Operative Findings: See description of procedure Description of Procedure: Patient was taken to the operative suite. Patient underwent a general anesthetic by the department of anesthesia. Patient was given preoperative antibiotics. The right lower extremity was placed in a well-padded arthroscopic leg coyle. The right leg was prepped and draped in the normal sterile orthopedic fashion. A lateral parapatellar and suprapatellar incision was made. Trochars were inserted. Arthroscopy was initiated. Suprapatellar pouch revealed diffuse thick reactive synovitis. The patellofemoral joint appeared to articulate congruently. There as grade 2 chondromalacia of the femoral sulcus with no significant osteochondral tears present. The scope was guided into the medial gutter. There were no loose bodies and there was no plica. The scope was then guided into the medial compartment. A medial parapatellar incision was made. Trocar inserted followed by probe. Complex tear involving the posterior horn of the medial meniscus. There were grade 3/4 chondromalacia changes of the medial femoral condyle with some diffuse osteochondral tears present. There was some thick reactive synovitis anteriorly. I performed a partial medial meniscectomy getting down to stable meniscal tissue. I performed a chondroplasty medial femoral condyle getting down to stable osteochondral tissue. There did appear to be a area of exposed bone in the medial femoral condyle measuring approximately 1 cm diameter. I performed a partial synovectomy decompressing thick reactive synovitis anteriorly. I now performed a microfracture to the area of grade 4 chondromalacia medial femoral condyle centrally in the bone with resultant bleeding at the microfracture site. The residual meniscus was probed and found to be stable. The residual osteochondral surface was stable. There was good decompression of the synovitis. Scope and probe were then guided into the intercondylar notch. Cruciates were identified, probed and found to be stable. The scope and probe were then guided into lateral compartment. The lateral meniscus was probed and was found to be stab le. There was mild grade 1 chondromalacia changes lateral compartment. There was thick reactive synovitis anteriorly. I introduced a motorized shaver and performed a partial synovectomy decompressing thick reactive synovitis. The shaver was removed. There was good decompression of the synovitis. The scope was in guided back into the suprapatellar compartment. I introduced a motorized shaver into the super patellar compartment. I debrided some piecemeal fragments of meniscus I encountered. I performed a partial synovectomy decompressing the thick reactive synovitis. Shaver was removed. I took one more look around the entire knee, no residual debris. Instruments were now removed from the joint. The joint was infiltrated with .25% Marcaine. Steri-Strips were applied to the portal sites. Sterile dressings were applied. The patient was placed into a REBECCA hose. No tourniquet was utilized. The patient was awakened, transferred to a bed and taken to recovery stable satisfactory condition.
[2020-11-06 12:01] VITALS: TEMP 96.9
[2020-11-06] MEDS: HYDROmorphone 1 MG/ML 1 ML SYRINGE IVP ONE ×2 (12:14→12:20)
[2020-11-06] MEDS ORDERED: hydrALAZINE HCL 20 MG/ML 1 ML VIAL IVP ONE (12:38)
[2020-11-06 13:12] VITALS: RESP 20
[2020-11-06] MEDS ORDERED: HYDROcodone/APAP 5-325MG 1 EACH TAB ONE (13:19)
[2020-11-06] MEDS ORDERED: HYDROcodone/APAP 5-325MG 1 EACH TAB PO ONE (13:20)
[2020-11-06 14:12] VITALS: BP 142/88; PULSE 88
== END 2020-11-06 14:20 | disposition home or self-care (01) ==
LOC: OR 07:55
PROVIDERS: ATTEND Orthopaedic Surgery
DX: M23.221 Derangement of posterior horn of medial meniscus due to old tear or injury, right knee (principal); M65.861 Other synovitis and tenosynovitis, right lower leg; M94.261 Chondromalacia, right knee; I73.9 Peripheral vascular disease, unspecified; E78.5 Hyperlipidemia, unspecified; J45.909 Unspecified asthma, uncomplicated; F17.210 Nicotine dependence, cigarettes, uncomplicated; Z79.02 Long term (current) use of antithrombotics/antiplatelets; Z79.82 Long term (current) use of aspirin; Z79.899 Other long term (current) drug therapy
CPT/HCPCS: 29881; 29879; J2250; J0360; J1100; J0690; J2405; J2001; J3010; J1170; J0330; J2704

== ENCOUNTER 2021-02-09 11:58 | Emergency (ER) | payer OTHER ==
--- NOTE | 2021-02-09 12:33 | ED ---
General Adult HPI - General Chief complaint: Chest Pain Stated complaint: Difficulty Talking, Heaviness in Chest Time Seen by Provider: 02/09/21 12:10 Source: patient Mode of arrival: wheelchair Limitations: no limitations - History of Present Illness Initial comments: Dictation was produced using [employer] dictation software. please excuse any gramma tical, word or spelling errors. Chief Complaint: 60 year-old male presents to the emergency department for cough, pleuritic chest pain and constitutional symptoms History of Present Illness: As a 52-year-old male he is a tobacco user. He has past medical history of asthma, peripheral vascular disease, dyslipidemia. Patient states his symptoms have been ongoing for approximately one week. Patient states he has chest pain when he lays flat. He does have mild constitutional symptoms however denies any fever. He states that he has sharp chest pain to his anterior chest that's worse with coughing. Denies any history of DVT or blood clots. The ROS documented in this emergency department record has been reviewed and confirmed by me. Those systems with pertinent positive or negative responses have been documented in the HPI. All other systems are other negative and/or noncontributory. PHYSICAL EXAM: General Impression: Alert and oriented x3, not in acute distress HEENT: Normocephalic atraumatic, extra-ocular movements intact, pupils equal and reactive to light bilaterally, mucous membranes moist. Cardiovascular: Heart regular rate and rhythm Chest: Able to complete full sentences, no retractions, no tachypnea Abdomen: abdomen soft, non-tender, non-distended, no organomegaly Musculoskeletal: Pulses present and equal in all extremities, no peripheral edema Motor: no focal deficits noted Neurological: CN II-XII grossly intact, no focal motor or sensory deficits noted Skin: Intact with no visualized rashes Psych: Normal affect and mood ED course: 60-year-old male presents with respiratory infectious symptoms. He does have chest pain cough that is worse with positional changes. Upon arrival are within acceptable limits. Is not hypoxic. Return evaluation obtained. CBC, metabolic panel is unremarkable. Troponin is negative. Coronavirus is negative. Chest x-ray is not acute patient was reevaluated at bedside at 1:40 PM found be stable medical condition. He wasn't showing any signs of respiratory distress. Patient's symptoms likely secondary to chest cold however given that his symptoms have been ongoing for approximately one week trial of antibiotics may benefit patient. Patient also given a dose of oral Decadron. He is advised to follow-up with his primary care doctor. He does have an MVR inhaler that he is encouraged to continue using. EKG interpretation: Ventricular rate 93, normal sinus rhythm, GA interval 160, QRS 88, QTc 437. No GA prolongation, no QTC prolongation, no ST or T-wave changes noted. EKG compared to 10/24/2020 showing no changes. Overall, this EKG is unremarkable - Related Data Home Medications Medication Instructions Recorded Confirmed Aspirin EC [Ecotrin] 325 mg PO HS 09/23/16 11/06/20 Atorvastatin [Lipitor] 80 mg PO DAILY 10/30/20 11/06/20 Previous Rx's Medication Instructions Recorded Clopidogrel [Plavix] 75 mg PO DAILY #90 tab 09/25/16 HYDROcodone/APAP 5-325MG [[place] 1 tab PO Q6HR PRN 3 Days #12 tab 11/06/20 5-325] Levofloxacin [Levaquin] 750 mg PO DAILY 5 Days #5 tab 02/09/21 Allergies Allergy/AdvReac Type Severity Reaction Status Date / Time No Known Allergies Allergy Verified 02/09/21 12:04 Review of Systems ROS Statement: Those systems with pertinent positive or pertinent negative responses have been documented in the HPI. ROS Other: All systems not noted in ROS Statement are negative. Past Medical History Past Medical History: Coronary Artery Disease (CAD), Hyperlipidemia, Hypertension Additional Past Medical History / Comment(s): PAD, DDD, History of Any Multi-Drug Resistant Organisms: None Reported Past Surgical History: Orthopedic Surgery Additional Past Surgical History / Comment(s): ANGIOGRAM, ARTHRECTOMY AND BALLOON ANGIOPLASTY OF RIGHT FEMORAL ARTERY. Past Anesthesia/Blood Transfusion Reactions: No Reported Reaction Additional Past Anesthesia/Blood Transfusion Reaction / Comment(s): . Past Psychological History: No Psychological Hx Reported Smoking Status: Current every day smoker Past Alcohol Use History: Daily Past Drug Use History: None Reported - Past Family History Mother Family Medical History: No Reported History General Exam Limitations: no limitations Course Vital Signs 02/09/21 12:00 Temperature 97.5 F L Pulse Rate 103 H Respiratory 24 Rate Blood Pressure 149/85 O2 Sat by Pulse 100 Oximetry Medical Decision Making - Lab Data Result diagrams: 02/09/21 12:30 05/23/21 12:30 Lab Results 02/09/21 02/09/21 02/09/21 Range/Units 12:30 12:30 12:30 WBC 10.4 (3.8-10.6) k/uL RBC 5.05 (4.30-5.90) m/uL Hgb 15.7 (13.0-17.5) gm/dL Hct 47.7 (39.0-53.0) % MCV 94.4 (80.0-100.0) fL MCH 31.1 (25.0-35.0) pg MCHC 32.9 (31.0-37.0) g/dL RDW 13.7 (11.5-15.5) % Plt Count 257 (150-450) k/uL MPV 6.7 Neutrophils % 81 % Lymphocytes % 13 % Monocytes % 3 % Eosinophils % 2 % Basophils % 1 % Neutrophils # 8.4 H (1.3-7.7) k/uL Lymphocytes # 1.3 (1.0-4.8) k/uL Monocytes # 0.3 (0-1.0) k/uL Eosinophils # 0.2 (0-0.7) k/uL Basophils # 0.1 (0-0.2) k/uL Sodium 141 (137-145) mmol/L Potassium 4.5 (3.5-5.1) mmol/L Chloride 102 (98-107) mmol/L Carbon Dioxide 27 (22-30) mmol/L Anion Gap 12 mmol/L BUN 19 (9-20) mg/dL Creatinine 1.07 (0.66-1.25) mg/dL Est GFR (CKD-EPI)AfAm 89 (>60 ml/min/1.73 sqM) Est GFR (CKD-EPI)NonAf 77 (>60 ml/min/1.73 sqM) Glucose 154 H (74-99) mg/dL Calcium 9.4 (8.4-10.2) mg/dL Total Bilirubin 0.6 (0.2-1.3) mg/dL AST 32 (17-59) U/L ALT 45 (4-49) U/L Alkaline Phosphatase 117 (38-126) U/L Troponin I <0.012 (0.000-0.034) ng/mL Total Protein 7.4 (6.3-8.2) g/dL Albumin 4.6 (3.5-5.0) g/dL Coronavirus (PCR) (Not Detectd) 02/09/21 Range/Units 12:31 WBC (3.8-10.6) k/uL RBC (4.30-5.90) m/uL Hgb (13.0-17.5) gm/dL Hct (39.0-53.0) % MCV (80.0-100.0) fL MCH (25.0-35.0) pg MCHC (31.0-37.0) g/dL RDW (11.5-15.5) % Plt Count (150-450) k/uL MPV Neutrophils % % Lymphocytes % % Monocytes % % Eosinophils % % Basophils % % Neutrophils # (1.3-7.7) k/uL Lymphocytes # (1.0-4.8) k/uL Monocytes # (0-1.0) k/uL Eosinophils # (0-0.7) k/uL Basophils # (0-0.2) k/uL Sodium (137-145) mmol/L Potassium (3.5-5.1) mmol/L Chloride (98-107) mmol/L Carbon Dioxide (22-30) mmol/L Anion Gap mmol/L BUN (9-20) mg/dL Creatinine (0.66-1.25) mg/dL Est GFR (CKD-EPI)AfAm (>60 ml/min/1.73 sqM) Est GFR (CKD-EPI)NonAf (>60 ml/min/1.73 sqM) Glucose (74-99) mg/dL Calcium (8.4-10.2) mg/dL Total Bilirubin (0.2-1.3) mg/dL AST (17-59) U/L ALT (4-49) U/L Alkaline Phosphatase (38-126) U/L Troponin I (0.000-0.034) ng/mL Total Protein (6.3-8.2) g/dL Albumin (3.5-5.0) g/dL Coronavirus (PCR) Not Detected (Not Detectd) Disposition Clinical Impression: Chest cold Disposition: HOME SELF-CARE Condition: Good Instructions (If sedation given, give patient instructions): Pharyngitis (ED) Prescriptions: Levofloxacin [Levaquin] 750 mg PO DAILY 5 Days #5 tab Is patient prescribed a controlled substance at d/c from ED?: No Referrals: Elizabeth Dias MD [Primary Care Provider] - 1-2 days
[2021-02-09 12:37] LABS: Basophils # (A) 0.1 k/uL (0-0.2); Basophils % (A) 1 %; Eosinophils # (A) 0.2 k/uL (0-0.7); Eosinophils % (A) 2 %; HCT 47.7 % (39.0-53.0); HGB 15.7 gm/dL (13.0-17.5); Lymphocytes # (A) 1.3 k/uL (1.0-4.8); Lymphocytes % (A) 13 %; MCH 31.1 pg (25.0-35.0); MCHC 32.9 g/dL (31.0-37.0); MCV 94.4 fL (80.0-100.0); Mean Platelet Volume 6.7; Monocytes # (A) 0.3 k/uL (0-1.0); Monocytes % (A) 3 %; Neutrophils # (A) 8.4 k/uL (1.3-7.7); Neutrophils % (A) 81 %; Platelet Count 257 k/uL (150-450); RBC 5.05 m/uL (4.30-5.90); RDW 13.7 % (11.5-15.5); WBC 10.4 k/uL (3.8-10.6)
[2021-02-09 12:49] LABS: Albumin 4.6 g/dL (3.5-5.0); Calcium 9.4 mg/dL (8.4-10.2); Potassium 4.5 mmol/L (3.5-5.1); Total Bilirubin 0.6 mg/dL (0.2-1.3); Total Protein 7.4 g/dL (6.3-8.2)
--- NOTE | 2021-02-09 13:38 | XR ---
EXAMINATION TYPE: XR chest 1V portable DATE OF EXAM: 02/09/2021 COMPARISON: Chest x-ray January 20, 2018 HISTORY: Cough. TECHNIQUE: Single AP portable frontal upright view of the chest is obtained. FINDINGS: There is chronic parenchymal change without suspicious focal air space opacity, pleural effusion, or pneumothorax seen. Diminished inspiration on current st udy. The cardiac silhouette size is more prominent and enlarged. Spurring in thoracic spine noted. Mi ld concentric Diffuse tracheal narrowing is seen. IMPRESSION: Cardiomegaly without acute pulmonary process.
[2021-02-09] MEDS ORDERED: dexAMETHasone 4 MG TAB PO STA (13:45)
[2021-02-09 14:07] VITALS: BP 129/86; PULSE 87; RESP 18; TEMP 98.6
== END 2021-02-09 14:06 | disposition home or self-care (01) ==
LOC: EC 11:58
DX: R07.9 Chest pain, unspecified (principal); R05 Cough; J45.909 Unspecified asthma, uncomplicated; E78.5 Hyperlipidemia, unspecified; F17.200 Nicotine dependence, unspecified, uncomplicated; I10 Essential (primary) hypertension; I25.10 Atherosclerotic heart disease of native coronary artery without angina pectoris; Z79.02 Long term (current) use of antithrombotics/antiplatelets; Z79.82 Long term (current) use of aspirin
CPT/HCPCS: 36415; 93005; 80053; 84484; 85025; 87635; 71045; 99285; J8540

== ENCOUNTER → 2021-08-28 | Outpatient (CLI) | payer OTHER ==
--- NOTE | 2021-08-28 08:41 | US ---
EXAMINATION TYPE: US abdomen complete DATE OF EXAM: 08/28/2021 COMPARISON: NONE CLINICAL HISTORY: R140 ABD DISTENSION. HTN, smoker, PAD, abdominal distention x 3 years. EXAM MEASUREMENTS: Liver Length: 17.9 cm Gallbladder Wall: 0.2 cm CBD: 0.3 cm Spleen: 10.0 cm Right Kidney: 11.2 x 6.8 x 5.7 cm Left Kidney: 12.5 x 4.6 x 5.5 cm Pancreas: hyperechoic Liver: hyperechoic to right renal cortex and attenuated posteriorly suggests fatty liver; hypoechoic area = 2.1 x 2.8 x 2.4cm of edematous layers noted near gallbladder (possible liver or biliary ectas ia ) Gallbladder: wnl Evidence for sonographic Tello's sign: noD: wnl Spleen: wnl Right Kidney: cortical cyst seen inferiorly = 1.3 x 1.1 x 1.1cm; extracapsular, crescent shaped hypo echoic area noted mid and inferior poles suggests sonographic "sweat sign" for renal failure. Left Kidney: extracapsular, crescent shaped hypoechoic area noted mid and inferior pole suggests son ographic "sweat sign" for renal failure. Upper IVC: wnl Abd Aorta: upper aorta appears wnl; mid and distally obscured by overlying bowel gas IMPRESSION: 1. Hepatic steatosis. 2. Renal cortical cyst right kidney.
--- NOTE | 2021-08-28 11:33 | USB ---
Reason for exam: clinical finding. Physical Findings: Nurse did not find any significant physical abnormalities on exam. US Breast RT Right limited breast ultrasound including focal area of concern, retroareolar and axilla demonstrates a 1.1 x 1.1 x 1.0cm irregular, hypoechoic, vascular lesion at the posterior nipple and a 1.3 x 1.4 x 1.0cm lymph node at the axilla. These results were verbally communicated with the patient and result sheet given to the patient on 08/28/21. ASSESSMENT: Suspicious, BI-RAD 4 RECOMMENDATION: Ultrasound core biopsy of the right breast. Called office with mammographic findings and has scheduled an appointment for the patient for 09/01/21 at 11:[address] Dias. PRELIMINARY REPORT CALLED AND FAXED TO DR. DIAS ON 08/28/21.
== END | disposition home or self-care (01) ==
LOC: RADUSWWP 07:01
PROVIDERS: ATTEND Internal Medicine
DX: K76.0 Fatty (change of) liver, not elsewhere classified (principal); N28.1 Cyst of kidney, acquired; R92.8 Other abnormal and inconclusive findings on diagnostic imaging of breast
CPT/HCPCS: 76700

== ENCOUNTER → 2021-10-02 | Day surgery (SDC) | payer OTHER ==
[2021-10-02 09:51] VITALS: BP 126/84; PULSE 88; RESP 16; TEMP 98.5
--- NOTE | 2021-10-02 13:38 | MM ---
Reason for exam: clinical finding. Physical Findings: Nurse did not find any significant physical abnormalities on exam. MG 3D Diag Mammo W/Cad NHUNG Bilateral CC and MLO view(s) were taken. Prior study comparison: August 28, 2021, right breast US breast RT. The breast tissue is almost entirely fat. Mild subareolar flame shaped density on the right compatible with benign gynecomastia. Otherwise, no discrete abnormality. These results were verbally communicated with the patient and result sheet given to the patient on 10/02/21. ASSESSMENT: Benign, BI-RAD 2 RECOMMENDATION: Follow-up diagnostic mammogram. As clinically indicated. Manage patient on a clinical basis. Surgical evaluation for recurrent inflammation/infection right nipple and breast.
--- NOTE | 2021-10-03 11:01 | USB ---
EXAMINATION TYPE: US discontinued breast bx RT DATE OF EXAM: 10/02/2021 COMPARISON: 08/28/2021 HISTORY: 61-year-old male referred for ultrasound-guided core needle biopsy of the right breast. Anu ent with history of nipple piercings and infection which improved with antibiotics. Residual subareol ar abnormality on the 08/28/2021 ultrasound, referred for biopsy. TECHNIQUE: Initial targeted ultrasound of the subareolar region. FINDINGS: The previous irregular 1.1 cm hypoechoic area in the subareolar region has improved and now has the a ppearance of flame-shaped hypoechoic gynecomastia measuring 1.5 cm. There is a curvilinear hypoechoic area centered within the nipple itself which could represent sequela of patient's previous nipple pi ercing, small amount of blood, or small amount of infectious fluid. Findings were discussed with the patient. Biopsy is being canceled at this time. Follow-up will be re commended. Note that we performed a mammogram as well to confirm benign gynecomastia. IMPRESSION: BI-RADS 3, probably benign RECOMMENDATION: 1. The patient will see Dr. Viktor Montano on the same day for further clinical evaluation. 2. Three-month follow-up right breast ultrasound to reassess the nipple finding. 3. Note that we performed a mammogram of the same day to confirm benign gynecomastia.
== END | disposition home or self-care (01) ==
LOC: RADUSWWP 09:19
PROVIDERS: ATTEND Internal Medicine
DX: R92.8 Other abnormal and inconclusive findings on diagnostic imaging of breast (principal)
CPT/HCPCS: 77066; 76641; G0279; 77062

== ENCOUNTER → 2021-10-02 | Outpatient (CLI) | payer OTHER ==
[2021-10-02 11:42] VITALS: BP 118/77; PULSE 87; RESP 17; TEMP 98.4
--- NOTE | 2021-10-02 12:26 | P.GSHP ---
History of Present Illness H&P Date: 10/02/21 Chief Complaint: mass right breast/extending into axilla Adonis is a 61 overweight male seen in consultation for Dr. Dias regarding a mass in his right breast. The mass occurred in August and extended towards the axilla. It was painful he was given what sounds like an antibiotic and it resolved and did have some drainage from the nipple areolar complex area. She initially had an ultrasound performed on which revealed a 1.1 x 1 cm irregular vascular lesion at the posterior nipple and 1.4 cm lymph node at the axilla. The ultrasound was repeated today with marked resolution of the area of concern in the right breast. The patient does not feel any mass in his breast at this time. He is not complaining of any nipple discharge at this time. He did not complain of any fever or chills. He did not complain of any trauma to the breast. He did not have any infection at any other part of his body. Patient is not complaining of any testicular lumps or masses Patient has had bilateral nipple piercing in the past the piercings were removed approximately 2 years ago. caffiene: 1-4 ups/day nicotine: 1/2 PPD chocolate: occasional Family History: none of cancer Surgical History: bilateral vascular surgery of legs knee . Left foot Medical History: GERD HTN blood thinner high cholesterol Social History: nicotine: 1/2 PPD alcohol: 3-4 beer/day drugs: none - Constitutional Constitutional: Denies chills, Denies fever - EENT Eyes: denies blurred vision, denies pain Ears: bilateral: tinnitus Ears, nose, mouth and throat: Denies headache, Denies sore throat - Breasts Breasts: bilateral: as per HPI - Cardiovascular Comment: follows with DR. Steele Cardiovascular: Reports chest pain, Denies shortness of breath - Respiratory Comment: 2PPd cut down to 1/2 PPD 5 years; started at 19 Respiratory: Denies cough, Denies 7 - Gastrointestinal Gastrointestinal: Denies abdominal pain, Denies diarrhea, Denies nausea, Denies vomiting - Genitourinary (Male) Comment: cyst right kidney Genitourinary: Denies dysuria, Denies hematuria - Musculoskeletal Comment: arthritis Musculoskeletal: Denies myalgias - Integumentary Integumentary: Denies pruritus, Denies rash - Neurological Comment: dizzy at times Neurological: Reports numbness, Denies weakness - Psychiatric Psychiatric: Denies anxiety, Denies depression - Endocrine Endocrine: Reports fatigue, Reports weight change - Hematologic/Lymphatic Comment: takes blood thiners; plavix and aspirin Hematologic/Lymphatic: Reports as per HPI - Allergic/Immunologic Allergic/Immunologic: Reports as per HPI, Reports seasonal allergies Past Medical History Past Medical History: Coronary Artery Disease (CAD), GERD/Reflux, Hyperlipidemia, Hypertension, Osteoarthritis (OA) Additional Past Medical History / Comment(s): Peripheral artery disease, DJD History of Any Multi-Drug Resistant Organisms: None Reported Past Surgical History: Orthopedic Surgery Additional Past Surgical History / Comment(s): ANGIOGRAM, ARTHRECTOMY AND BALLOON ANGIOPLASTY OF RIGHT FEMORAL ARTERY. Past Anesthesia/Blood Transfusion Reactions: No Reported Reaction Additional Past Anesthesia/Blood Transfusion Reaction / Comment(s): . Past Psychological History: No Psychological Hx Reported Smoking Status: Current every day smoker Past Alcohol Use History: Daily Additional Past Alcohol Use History / Comment(s): smokes 1 PPD, for > 30 yrs, DRINKS 2-3 BEERS DAILY Past Drug Use History: None Reported - Past Family History Mother Family Medical History: No Reported History Medications and Allergies Home Medications Medication Instructions Recorded Confirmed Type Aspirin EC [Ecotrin] 325 mg PO HS 09/23/16 10/02/21 History Clopidogrel [Plavix] 75 mg PO DAILY #90 tab 09/25/16 10/02/21 Rx Atorvastatin [Lipitor] 80 mg PO DAILY 10/30/20 10/02/21 History Hydrochlorothiazide 12.5 mg PO DAILY 09/24/21 10/02/21 History [hydroCHLOROthiazide] Valsartan [Diovan] 80 mg PO DAILY 09/24/21 10/02/21 History Omeprazole 40 mg PO DAILY 10/02/21 10/02/21 History Allergies Allergy/AdvReac Type Severity Reaction Status Date / Time No Known Allergies Allergy Verified 10/02/21 11:32 Surgical - Exam Vital Signs Temp Pulse Resp BP 98.4 F 87 17 118/77 10/02/21 11:36 10/02/21 11:36 10/02/21 11:36 10/02/21 11:36 - General no distress - Eyes normal ocular movement - ENT no hearing loss - Neck trachea midline - Respiratory normal respiratory effort, clear to auscultation - Cardiovascular Rhythm: regular Heart Sounds: normal: S1, S2 - Abdomen Abdomen: soft, non tender, no guarding, no rigid, no rebound - Genitourinary no testicular masses bilateral testicles present - Integumentary normal turgor - Neurologic no disoriented, no combative - Musculoskeletal normal gait - Psychiatric oriented to time, oriented to person, oriented to place, speech is normal, memory intact Breast examination: Right breast: Multi-positional exam no discrete dominant masses or nodules of concern, right breast slightly larger than left breast Right axilla: No adenopathy of concern Left breast: Multiple positional exam fibrocystic changes no discrete dominant masses or nodules of concern Left axilla: No adenopathy of concern Assessment and Plan Assessment: Impression: GERD HTN blood thinner high cholesterol On ultrasound largely resolved density right breast, reviewed with Dr. Wiseman Plan: ultrasound right breast in 4 months with appointment at that time Patient has been given the option of an ultrasound core biopsy at this time versus repeating ultrasound in 4 months the patient is on blood thinners and it sounds like he possibly developed a hematoma which got infected and drained. The patient is going to have a repeat ultrasound in 4 months with physician exam at that time. He understands we cannot tell definitively that there is nothing there without a biopsy but at this time the lesion has largely resolved. Cc: Dr. Dias
== END ==
LOC: WWCWWP 11:16
PROVIDERS: ATTEND Surgery
DX: N63.10 Unspecified lump in the right breast, unspecified quadrant (principal); K21.9 Gastro-esophageal reflux disease without esophagitis; I10 Essential (primary) hypertension; E78.00 Pure hypercholesterolemia, unspecified; F17.210 Nicotine dependence, cigarettes, uncomplicated; I25.10 Atherosclerotic heart disease of native coronary artery without angina pectoris; E78.5 Hyperlipidemia, unspecified; M19.90 Unspecified osteoarthritis, unspecified site; Z79.82 Long term (current) use of aspirin; Z79.899 Other long term (current) drug therapy

== ENCOUNTER → 2021-10-02 | Outpatient (CLI) | payer OTHER | END | disposition home or self-care (01) | LOC: RADMAMWWP 11:14 | PROVIDERS: ATTEND Radiology Diagnostic Radiology | DX: Z53.9 Procedure and treatment not carried out, unspecified reason (principal) ==

== ENCOUNTER 2022-01-06 07:58 | Day surgery (SDC) | payer OTHER ==
[2022-01-02 14:22] VITALS: BMI 31.6
[~2022-01-06 07:58] MED LIST changes: -DEXAMETHASONE SOD PHOSPHATE 4 MG/ML 1 ML VIAL IV PRN; -ONDANSETRON 4 MG/2 ML VIAL IVP PRN
[2022-01-06 08:30] VITALS: TEMP 97.2
[2022-01-06] MEDS ORDERED: LIDOCAINE 1% INJ 10MG/ML (20 ML MDV) ONE (08:57)
[2022-01-06] MEDS ORDERED: PROPOFOL 10 MG/ML 20 ML VIAL IV ONE (08:57)
[2022-01-06] MEDS ORDERED: MIDAZOLAM 2 MG/2 ML VIAL ONE (08:57)
--- NOTE | 2022-01-06 09:08 | P.PCN ---
Date of Procedure: 01/06/22 Procedure(s) Performed: BRIEF HISTORY: Patient is a 61-year-old, pleasant, white male scheduled for an upper endoscopy as a part of evaluation of nausea vomiting and heartburn for the last 3 months duration. He was on Protonix 40 mg daily with no help. Recently his medication was changed to Prilosec 20 mg twice daily and is feeling somewhat better. He scheduled for an upper endoscopy to rule out complicated reflux disease.. PROCEDURE PERFORMED: Esophagogastroduodenoscopy with biopsy. PREOPERATIVE DIAGNOSIS: GERD/Intermittent nausea vomiting of 3 months duration. IV sedation per anesthesia. PROCEDURE: After informed consent was obtained, the patient was brought into the endoscopy unit. IV sedation was administered by Anesthesia under continuous monitoring. Initially the Olympus GIF-140 video endoscope was inserted into the mouth. Esophagus intubated without any difficulty. It was gradually advanced into the stomach and duodenum and carefully examined. The bulb and mild duodenitis and the second part of the duodenum appeared normal. The scope at this time was withdrawn to the stomach, adequately insufflated with air, and upon careful examination, mucosa of the antrum, had erosions and biopsies were done from this area. The body, cardia and the fundus appeared normal. The scope was then withdrawn into the esophagus. The GE junction was located at 43 cm from the incisors. It appeared slightly irregular but there was no evidence of Castillo's esophagus. The esophagus appeared normal. There were no erosions or ulcerations seen and the patient tolerated the procedure well. IMPRESSION: 1. Antral erosive gastritis. 2. Mild duodenitis. 3. Irregular GE junction but no evidence of esophagitis or Castillo's esophagus RECOMMENDATIONS: The findings of this examination were discussed with the patient as well as his family. He was advised to continue with Prilosec 20 mg twice daily and follow antireflux measures.
[2022-01-06 09:28] VITALS: BP 112/75; PULSE 91; RESP 18
== END 2022-01-06 10:23 | disposition home or self-care (01) ==
LOC: ORWHC2ENDO 07:58
PROVIDERS: ATTEND Internal Medicine Gastroenterology
DX: K29.60 Other gastritis without bleeding (principal); K29.80 Duodenitis without bleeding; K21.9 Gastro-esophageal reflux disease without esophagitis; I25.10 Atherosclerotic heart disease of native coronary artery without angina pectoris; I10 Essential (primary) hypertension; E78.5 Hyperlipidemia, unspecified; M19.90 Unspecified osteoarthritis, unspecified site; F17.200 Nicotine dependence, unspecified, uncomplicated; Z79.899 Other long term (current) drug therapy
CPT/HCPCS: 43239; J2250; J2001; J2704; 88305; 88342

== ENCOUNTER → 2022-01-26 | Outpatient (CLI) | payer OTHER ==
--- NOTE | 2022-01-26 10:20 | USB ---
Reason for exam: follow-up at short interval from prior study. History: US discontinued breast bx RT of the right breast, October 02, 2021. Physical Findings: A clinical breast exam by your physician is recommended on an annual basis and results should be correlated with mammographic findings. US Breast RT Right complete breast ultrasound includes all four quadrants, the retroareolar region and axilla. Finding demonstrates no cystic or solid lesion seen greater than 0.5cm. Gynecomastia has resolved. Results were given to the patient verbally at the time of the exam. ASSESSMENT: Negative, BI-RAD 1 RECOMMENDATION: No follow-up of the right breast. No follow up necessary.
== END | disposition home or self-care (01) ==
LOC: RADUSWWP 09:47
PROVIDERS: ATTEND Surgery
DX: R92.8 Other abnormal and inconclusive findings on diagnostic imaging of breast (principal)

== ENCOUNTER → 2022-01-30 | Outpatient (CLI) | payer OTHER ==
[2022-01-30 11:30] VITALS: BP 147/86; PULSE 89; RESP 18; TEMP 98.9
--- NOTE | 2022-01-30 12:27 | P.PN ---
Subjective Progress Note Date: 01/30/22 Principal diagnosis: right breast nodularity resolved Adonis is a 61 overweight male seen in consultation for Dr. Dias regarding a mass in his right breast. The mass occurred in August and extended towards the axilla. It was painful he was given what sounds like an antibiotic and it resolved and did have some drainage from the nipple areolar complex area. She initially had an ultrasound performed on which revealed a 1.1 x 1 cm irregular vascular lesion at the posterior nipple and 1.4 cm lymph node at the axilla. The ultrasound was repeated today with marked resolution of the area of concern in the right breast. The patient does not feel any mass in his breast at this time. He is not complaining of any nipple discharge at this time. He did not complain of any fever or chills. He did not complain of any trauma to the breast. He did not have any infection at any other part of his body. Patient is not complaining of any testicular lumps or masses Patient has had bilateral nipple piercing in the past the piercings were removed approximately 2 years ago. 01-30-22 Patient states the nodularity in his right breast has resolved. He has no complaints related to his breast. He had an ultrasound performed of that side on 5921 which did not reveal any cystic or solid lesion greater than 0.5 cm. Any gynecomastia has resolved. caffiene: 1-4 ups/day nicotine: 1/2 PPD chocolate: occasional Family History: none of cancer Surgical History: bilateral vascular surgery of legs knee . Left foot Medical History: GERD HTN blood thinner high cholesterol Social History: nicotine: 1/2 PPD alcohol: 3-4 beer/day drugs: none - Constitutional Constitutional: Denies chills, Denies fever - EENT Eyes: denies blurred vision, denies pain Ears: bilateral: tinnitus Ears, nose, mouth and throat: Denies headache, Denies sore throat - Breasts Breasts: bilateral: as per HPI - Cardiovascular Comment: follows with DR. Steele Cardiovascular: Reports chest pain, Denies shortness of breath - Respiratory Comment: 2PPd cut down to 1/2 PPD 5 years; started at 19 Respiratory: Denies cough - Gastrointestinal Gastrointestinal: Denies abdominal pain, Denies diarrhea, Denies nausea, Denies vomiting - Genitourinary (Male) Comment: cyst right kidney Genitourinary: Denies dysuria, Denies hematuria - Musculoskeletal Comment: arthritis Musculoskeletal: Denies myalgias - Integumentary Integumentary: Denies pruritus, Denies rash - Neurological Comment: dizzy at times Neurological: Reports numbness, Denies weakness - Psychiatric Psychiatric: Denies anxiety, Denies depression - Endocrine Endocrine: Reports fatigue, Reports weight change - Hematologic/Lymphatic Comment: takes blood thiners; plavix and aspirin Hematologic/Lymphatic: Reports as per HPI - Allergic/Immunologic Allergic/Immunologic: Reports as per HPI, Reports seasonal allergies Objective - Vital Signs Vital signs: Vital Signs Temp 98.9 F 01/30/22 11:28 Pulse 89 01/30/22 11:28 Resp 18 01/30/22 11:28 BP 147/86 01/30/22 11:28 Pulse Ox 95 01/30/22 11:28 Intake & Output 01/29/22 01/30/22 01/30/22 18:59 06:59 18:59 Weight 111.13 kg - Exam BMI: 32.3 - Constitutional General appearance: Present: cooperative - EENT Eyes: Present: EOMI - Neck Neck: Present: normal ROM - Respiratory Respiratory: bilateral: CTA - Cardiovascular Heart sounds: normal: S1, S2 - Integumentary Integumentary: Present: normal turgor - Psychiatric Psychiatric: Present: A&O x's 3, appropriate affect, intact judgment & insight - Additional findings Additional findings: Breast examination: Right breast: Multiple positional exam no dominant masses or nodules of concern no lesions of concern Axilla: No adenopathy of concern Left breast: Multi-positional exam fibrocystic changes no dominant masses or nodules of concern Left axilla: No adenopathy of concern Assessment and Plan Assessment: Impression: Hypertension Blood thinner High cholesterol On recent ultrasound resolved density right breast The patient had developed a hematoma most likely in the right breast which got infected and drained. This appears to have completely resolved. Plan: Follow up if patient notes any further changes in his breast otherwise at this time the lesion seems to have resolved and the patient will continue to follow with Dr. Dias Cc: Dr. Dias
== END ==
LOC: WWCWWP 11:20
PROVIDERS: ATTEND Surgery
DX: Z09 Encounter for follow-up examination after completed treatment for conditions other than malignant neoplasm (principal); I10 Essential (primary) hypertension; E78.00 Pure hypercholesterolemia, unspecified; F17.210 Nicotine dependence, cigarettes, uncomplicated

== ENCOUNTER → 2022-05-20 | Outpatient (CLI) | payer MEDICARE, OTHER ==
--- NOTE | 2022-05-20 15:09 | MR ---
EXAMINATION TYPE: MR knee LT wo con DATE OF EXAM: 05/20/2022 COMPARISON: None HISTORY: L knee pain TECHNIQUE: Multiplanar, multisequence imaging of the left knee is performed without IV contrast. FINDINGS: MEDIAL MENISCUS: Radial tear posterior horn medial meniscus. Anterior horn is intact. LATERAL MENISCUS: Anterior and posterior horns are intact without tear. CRUCIATE LIGAMENTS: There is thinning of the ACL without evidence for tear. PCL is grossly unremarkab le. COLLATERAL LIGAMENTS: The medial collateral ligament and lateral collateral ligament complex are inta ct and unremarkable. EXTENSOR MECHANISM: Visualized quadriceps and patellar tendons are intact. EFFUSION: No significant suprapatellar joint effusion. POPLITEAL CYST: Posterior popliteal septated ganglion cyst measuring 1.2 cm. TRICOMPARTMENT SPACES: Moderate narrowing medial tibiofemoral joint space as well as the patellofemor al joint space. CARTILAGE: Intact BONE MARROW SIGNAL: No focal abnormal marrow signal is appreciated. OTHER: No additional significant abnormality is appreciated. IMPRESSION: 1. Radial tear posterior horn medial meniscus. 2. Thinning of the ACL without acute tear seen at this time.
== END | disposition home or self-care (01) ==
LOC: RADMRIMAIN 10:54
PROVIDERS: ATTEND Orthopaedic Surgery
DX: M23.321 Other meniscus derangements, posterior horn of medial meniscus, right knee (principal)

== ENCOUNTER → 2022-06-23 | Outpatient (CLI) | payer MEDICARE, OTHER ==
[2022-06-23 16:11] LABS: Basophils # (A) 0.06 X 10*3/uL (0.00-0.10); Basophils % (A) 0.8 %; Eosinophils # (A) 0.16 X 10*3/uL (0.04-0.35); Eosinophils % (A) 2.1 %; Immature Grans, Automated 0.3 %; Lymphocytes # (A) 1.75 X 10*3/uL (0.90-5.00); Lymphocytes % (A) 22.6 %; MCH 32.7 pg (27.0-32.0); MCHC 33.3 g/dL (32.0-37.0); Mean Platelet Volume 9.6 fL (9.5-12.2); Monocytes # (A) 0.63 X 10*3/uL (0.20-1.00); Monocytes % (A) 8.1 %; NRBC Per 100 WBC 0 /100 WBCS (0.0-0.0); Neutrophils # (A) 5.14 X 10*3/uL (1.80-7.70); Neutrophils % (A) 66.1 %; Platelet Count 226 X 10*3/uL (140-440); RDW 14.1 % (11.5-14.5); WBC 7.76 X 10*3/uL (4.50-10.00)
[2022-06-23 16:37] LABS: Anion Gap 13.4 mmol/L (10.00-18.00); Carbon Dioxide 24.6 mmol/L (20.0-27.5); Potassium 4.2 mmol/L (3.5-5.5)
== END | disposition home or self-care (01) ==
LOC: LABPAT 08:35
PROVIDERS: ATTEND Orthopaedic Surgery
DX: Z01.812 Encounter for preprocedural laboratory examination (principal); M23.92 Unspecified internal derangement of left knee
CPT/HCPCS: 80051; 85025

== ENCOUNTER 2022-07-09 13:27 | Day surgery (SDC) | payer MEDICARE, OTHER ==
[2022-07-07 14:43] VITALS: BMI 30.4
--- NOTE | 2022-07-09 08:19 | HP ---
HISTORY AND PHYSICAL DATE OF SURGERY: HISTORY OF PRESENT ILLNESS: Adonis Serra is a 61-year-old gentleman seen with progressive left knee pain. We discussed the options for treatment. He elected to proceed with left knee arthroscopy. Consent regarding the procedure was obtained. PAST MEDICAL HISTORY: Hyperlipidemia, asthma. PAST SURGICAL HISTORY: Knee arthroscopy, oral surgery. DAILY MEDICATIONS: 1. Atorvastatin. 2. Valsartan. 3. Aspirin. ALLERGIES: None. SOCIAL HISTORY: He smokes cigarettes. PHYSICAL EXAMINATION: Physical evaluation of the left knee: His range of motion is negative 7 to 120. Mild effusion. Tenderness along the medial joint line. Positive medial Gay's. Ligaments stable. Hip rotation without pain. Distal neurovascular exam is intact. IMAGING DATA: Radiographs of the left knee revealed mild to moderate osteoarthritic changes. MRI of the left knee revealed a medial meniscal tear. IMPRESSION: 1. Intermittent left knee with medial meniscal tear. 2. Hyperlipidemia. 3. Hypertension. PLAN: Left knee arthroscopy with partial medial meniscectomy and debridement. MMODL / IJN: [id number] /
[~2022-07-09 13:27] MED LIST changes: +DEXAMETHASONE SOD PHOSPHATE 4 MG/ML 1 ML VIAL IV ONE; +MIDAZOLAM 2 MG/2 ML VIAL IV PRN; +ONDANSETRON 4 MG/2 ML VIAL IVP ONE
[2022-07-09] MEDS ORDERED: BUPIVACAINE (PF) 0.25% 30 ML VIAL SQ ONE ×2 (15:49→16:18)
[2022-07-09] MEDS ORDERED: fentaNYL (PF) 50 MCG/ML 2 ML AMP ONE (15:51)
[2022-07-09] MEDS ORDERED: PROPOFOL 10 MG/ML 20 ML VIAL IV ONE (15:51)
[2022-07-09] MEDS ORDERED: SUCCINYLCHOLINE CHLORIDE 200 MG/10 ML VIAL IV ONE (15:51)
[2022-07-09] MEDS ORDERED: LIDOCAINE 2% INJ 20 MG/ML (2 ML VIAL) ONE (15:51)
[2022-07-09] MEDS ORDERED: MIDAZOLAM 2 MG/2 ML VIAL ONE (15:51)
--- NOTE | 2022-07-09 16:31 | P.OP ---
Date of Procedure: 07/09/22 Preoperative Diagnosis: Internal derangement left knee Postoperative Diagnosis: 1. Tear medial and lateral meniscus left knee 2. Grade 4 chondromalacia medial femoral condyle left knee 3. Reactive synovitis medial, lateral and suprapatellar compartments left knee Procedure(s) Performed: 1. Arthroscopic partial medial and lateral meniscectomy left knee 2. Arthroscopic microfracture medial femoral condyle left knee 3. Arthroscopic partial synovectomy medial, lateral and suprapatellar compartments left knee Anesthesia: GETA, local Surgeon: Masoud Christianson Estimated Blood Loss (ml): 5 Pathology: none sent Condition: stable Disposition: PACU Indications for Procedure: 61-year-old patient seen with progressive left knee pain. After treatment options were discussed, he elected to proceed with arthroscopy. Operative Findings: See description of procedure Description of Procedure: Patient was taken to the operative suite. Patient underwent a general anesthetic by the department of anesthesia. Patient was given preoperative antibiotics. The left lower extremity was placed in a well-padded arthroscopic leg coyle. The left leg was prepped and draped in the normal sterile orthopedic fashion. A lateral parapatellar and suprapatellar incision was made. Trochars were inserted. Arthroscopy was initiated. Suprapatellar pouch revealed diffuse thick reactive synovitis. The patellofemoral joint appeared to articulate congruently. There was grade 1 chondromalacia of the patellofemoral joint with no Beverly and osteochondral tears present.. The scope was guided into the medial gutter. No loose bodies or plica were identified. The scope was then guided into the medial compartment. A medial parapatellar incision was made. Trocar inserted followed by probe. There was a complex tear involving the posterior horn medial meniscus which extends the midbody area. There were grade 3/4 chondromalacia changes the medial femoral condyle with some diffuse osteochondral flap tears present. There was some thick reactive synovitis anteriorly. I performed a partial medial meniscectomy getting down to stable meniscal tissue. I performed a chondroplasty of the medial femoral condyle and partial synovectomy decompressing the reactive synovitis. I did note an area of exposed bone weightbearing surface medial femoral condyle which measured approximately 1 cm. I introduced a microfracture awl performed a microfracture to medial femoral condyle penetrating the bone with resultant bleeding at the microfracture site. The residual meniscus was stable. The residual osteochondral surface was stable. There was good decompression of the synovitis. Scope and probe were then guided into the intercondylar notch. Cruciates were identified, probed and found to be stable. The scope and probe were then guided into lateral compartment. There was a radial tear mid body lateral meniscus. There was some thick reactive synovitis anteriorly. There were mild grade 1 chondromalacia changes lateral compartment. I performed a partial lateral meniscectomy. I performed a partial synovectomy. The residual meniscus was stable. There was good decompression of synovitis. The scope was in guided back into the suprapatellar compartment. I introduced a motorized shaver into the super compartment. I performed a partial synovectomy. I debrided some piecemeal fragments of meniscus I encountered. The shaver was now removed. I noted good decompression of the synovitis. I took one more look around the entire knee, no residual debris. Instruments were now removed from the joint. The joint was infiltrated with .25% Marcaine. Steri-Strips were applied to the portal sites. Sterile dressings were applied. The patient was placed into a REBECCA hose. No tourniquet was utilized. The patient was awakened, transferred to a bed and taken to recovery stable satisfactory condition.
[2022-07-09 16:40] VITALS: TEMP 96.9
[2022-07-09] MEDS: HYDROmorphone 0.5 MG/0.5 ML SYRINGE IVP PRN ×2 (16:55→17:02)
[2022-07-09 17:42] VITALS: RESP 20
[2022-07-09] MEDS ORDERED: HYDROcodone/APAP 5-325MG 1 EACH TAB ONE (17:45)
[2022-07-09] MEDS ORDERED: HYDROcodone/APAP 5-325MG 1 EACH TAB PO ONE (17:46)
[2022-07-09 18:55] VITALS: BP 165/90; PULSE 80
== END 2022-07-09 18:59 | disposition home or self-care (01) ==
LOC: OR 13:27
PROVIDERS: ATTEND Orthopaedic Surgery
DX: M23.301 Other meniscus derangements, unspecified lateral meniscus, left knee (principal); M23.304 Other meniscus derangements, unspecified medial meniscus, left knee; M94.262 Chondromalacia, left knee; M65.862 Other synovitis and tenosynovitis, left lower leg; E78.5 Hyperlipidemia, unspecified; I10 Essential (primary) hypertension; I25.10 Atherosclerotic heart disease of native coronary artery without angina pectoris; G47.33 Obstructive sleep apnea (adult) (pediatric); F17.210 Nicotine dependence, cigarettes, uncomplicated; Z79.899 Other long term (current) drug therapy
CPT/HCPCS: 29880; J2250; J0330; J1100; J0690; J2405; J3010; J2704; J1170; J2001

== ENCOUNTER → 2022-08-07 | Outpatient (CLI) | payer MEDICARE, OTHER ==
[2022-08-07 13:04] LABS: African American GFR (CKD) >90 (>60 ml/min/1.73 sqM); Blood Urea Nitrogen 10 mg/dL (9-20); Non-African American GFR(CKD) >90 (>60 ml/min/1.73 sqM)
--- NOTE | 2022-08-07 15:00 | CT ---
EXAMINATION TYPE: CT abdomen pelvis w con DATE OF EXAM: 08/07/2022 COMPARISON: None HISTORY: abnormal weight loss CT DLP: 1649 mGycm CONTRAST: CT scan of the abdomen and pelvis is performed with Oral Contrast and with IV Contrast, patient injec zi with 70 mL of Isovue 300. FINDINGS: LUNG BASES-: No visible nodule. No infiltrate. LIVER/GB: No calcified gallstones. No space occupying hepatic lesion. Biliary tree is of normal ca liber. PANCREAS: No inflammation. No distinct mass. SPLEEN: No splenic enlargement. No lesion seen. ADRENALS: No nodule. No thickening. KIDNEYS/BLADDER: No hydronephrosis. No nephrolithiasis. No distinct renal mass. Urinary bladder g rossly unremarkable. BOWEL: Normal appendix. Normal bowel caliber. No inflammation. GENITAL ORGANS: No gross abnormality. LYMPH NODES: No greater than 1cm abdominal or pelvic lymph nodes are appreciated. AORTA: No significant abnormality. OSSEOUS STRUCTURES: No significant abnormality is seen. 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 Fat-containing bilatera l inguinal hernias. Surgical clips about the right antony. IMPRESSION: 1. No significant abnormality to account for the patient's symptoms.
== END | disposition home or self-care (01) ==
LOC: RADCTMAIN 11:32
PROVIDERS: ATTEND Internal Medicine Gastroenterology
DX: R63.4 Abnormal weight loss (principal)
CPT/HCPCS: 82565; 84520; 74177; 36415; Q9967

== ENCOUNTER 2022-12-11 12:20 | Day surgery (SDC) | payer MEDICARE, OTHER ==
[2022-12-08 14:45] VITALS: BMI 29.7
[~2022-12-11 12:20] MED LIST changes: -DEXAMETHASONE SOD PHOSPHATE 4 MG/ML 1 ML VIAL IV ONE; -MIDAZOLAM 2 MG/2 ML VIAL IV PRN; -ONDANSETRON 4 MG/2 ML VIAL IVP ONE
[2022-12-11] MEDS ORDERED: LACTATED RINGERS 1,000 ML IV ONE (13:14)
[2022-12-11 13:22] VITALS: TEMP 98
[2022-12-11] MEDS ORDERED: PROPOFOL 10 MG/ML 20 ML VIAL IV ONE (13:45)
[2022-12-11] MEDS ORDERED: LIDOCAINE 2% INJ 20 MG/ML (2 ML VIAL) ONE (13:45)
--- NOTE | 2022-12-11 14:04 | P.PCN ---
Date of Procedure: 12/11/22 Procedure(s) Performed: BRIEF HISTORY: Patient is a 62-year-old, pleasant, white male scheduled for an upper endoscopy as a part of evaluation of epigastric discomfort and early satiety for the last several months duration. He lost about 20 pounds one month.. PROCEDURE PERFORMED: Esophagogastroduodenoscopy with biopsy. PREOPERATIVE DIAGNOSIS: Epigastric pain, early satiety and weight loss. IV sedation per anesthesia. PROCEDURE: After informed consent was obtained, the patient was brought into [facility] endoscopy unit. IV sedation was administered by Anesthesia under continuous monitoring. Initially the Olympus GIF-140 video endoscope was inserted into the mouth. Esophagus intubated without any difficulty. It was gradually advanced into the stomach and duodenum and carefully examined. The bulb and the second part of the duodenum had mild duodenitis. Biopsies were done from this area.. The scope at this time was withdrawn to the stomach, adequately insufflated with air, and upon careful examination, mucosa of the antrum, had diffuse erythema consistent with gastritis and biopsies were done from this area. Mucosa of the body, cardia and the fundus appeared normal. The scope was then withdrawn into the esophagus. The GE junction was located at 42 cm from the incisors. The esophagus appeared normal. There were no erosions or ulcerations seen and the patient tolerated the procedure well. IMPRESSION: 1. Mild antral gastritis and duodenitis. 2. No evidence of peptic ulcer disease. RECOMMENDATIONS: The findings of this examination were discussed with the patient as well as her family. was advised to follow with the biopsy results. Continue with omeprazole 20 mg daily and follow antireflux measures.
[2022-12-11 14:49] VITALS: BP 154/96; PULSE 92; RESP 18
== END 2022-12-11 15:05 | disposition home or self-care (01) ==
LOC: ORWHC2ENDO 12:20
PROVIDERS: ATTEND Internal Medicine Gastroenterology
DX: K29.50 Unspecified chronic gastritis without bleeding (principal); K29.80 Duodenitis without bleeding; I10 Essential (primary) hypertension; E78.5 Hyperlipidemia, unspecified; I25.10 Atherosclerotic heart disease of native coronary artery without angina pectoris; J45.909 Unspecified asthma, uncomplicated; K21.9 Gastro-esophageal reflux disease without esophagitis; F17.200 Nicotine dependence, unspecified, uncomplicated; Z79.899 Other long term (current) drug therapy
CPT/HCPCS: 88305; 43239; J2704; J2001

== ENCOUNTER → 2023-10-14 | Outpatient (CLI) | payer MEDICARE ==
[2023-10-14 13:27] VITALS: BP 116/78; PULSE 92; RESP 18; TEMP 98.2
--- NOTE | 2023-10-14 14:03 | P.PN ---
Subjective Progress Note Date: 10/14/23 10-14-23 Principal diagnosis: right breast nodularity resolved Adonis is a 61 overweight male seen in consultation for Dr. Dias regarding a mass in his right breast. The mass occurred in August and extended towards the axilla. It was painful he was given what sounds like an antibiotic and it resolved and did have some drainage from the nipple areolar complex area. He initially had an ultrasound performed on which revealed a 1.1 x 1 cm irregular vascular lesion at the posterior nipple and 1.4 cm lymph node at the axilla. The ultrasound was repeated on 01-26-22 with marked resolution of the area of concern in the right breast. The patient does not feel any mass in his breast at this time. He is not complaining of any nipple discharge at this time. He did not complain of any fever or chills. He did not complain of any trauma to the breast. He did not have any infection at any other part of his body. Patient has had bilateral nipple piercing in the past the piercings were removed approximately 4 years ago. The patient states about 7 weeks ago his right breast got swollen and pianful. He is not complaining of any fever or chills. He states the swelling has decreased since it started. Approximately a year and a half ago his nipples were repierced however he did not tolerate it well and took the piercings out again. Most recently has not had any recent trauma that he knows of in his breast. He is not complaining of any testicular lumps or nodules caffiene: 1-4 ups/day nicotine: 1/2 PPD chocolate: occasional Family History: none of cancer Surgical History: bilateral vascular surgery of legs knee . Left foot arthoscopic on his knees, uses a cane Medical History: GERD HTN blood thinner high cholesterol left foot bothers him Social History: nicotine: 1/2 PPD alcohol: 3-4 beer/day drugs: none - Constitutional Constitutional: Denies chills, Denies fever - EENT Eyes: denies blurred vision, denies pain Ears: bilateral: tinnitus Ears, nose, mouth and throat: Denies headache, Denies sore throat - Breasts Breasts: bilateral: as per HPI - Cardiovascular Comment: follows with DR. Steele Cardiovascular: Reports chest pain, Denies shortness of breath - Respiratory Comment: 2PPd cut down to 1/2 PPD 5 years; started at 19 Respiratory: Denies cough - Gastrointestinal Gastrointestinal: Denies abdominal pain, Denies diarrhea, Denies nausea, Denies vomiting - Genitourinary (Male) Comment: cyst right kidney Genitourinary: Denies dysuria, Denies hematuria - Musculoskeletal Comment: arthritis Musculoskeletal: Denies myalgias - Integumentary Integumentary: Denies pruritus, Denies rash - Neurological Comment: dizzy at times Neurological: Reports numbness, Denies weakness - Psychiatric Psychiatric: Denies anxiety, Denies depression - Endocrine Endocrine: Reports fatigue, Reports weight change - Hematologic/Lymphatic Comment: takes blood thiners; plavix and aspirin Hematologic/Lymphatic: Reports as per HPI - Allergic/Immunologic Allergic/Immunologic: Reports as per HPI, Reports seasonal allergies Objective - Vital Signs Vital signs: Vital Signs Temp 98.2 F 10/14/23 13:24 Pulse 92 10/14/23 13:24 Resp 18 10/14/23 13:24 BP 116/78 10/14/23 13:24 Pulse Ox 95 10/14/23 13:24 FiO2 Intake & Output 10/13/23 10/14/23 10/14/23 18:59 06:59 18:59 Weight 112.491 kg - Constitutional General appearance: Present: cooperative - EENT Eyes: Present: EOMI ENT: Present: hearing grossly normal - Neck Neck: Present: normal ROM - Respiratory Respiratory: bilateral: CTA - Cardiovascular Heart sounds: normal: S1, S2 - Integumentary Integumentary: Present: normal turgor - Musculoskeletal Musculoskeletal: Present: gait normal - Psychiatric Psychiatric: Present: A&O x's 3, appropriate affect, intact judgment & insight - Additional findings Additional findings: Breast examination: Right breast: Multi positional exam swollen, mild erythema to the breast, the nipple piercing site is oozing seropurulent fluid Axilla: No adenopathy of concern Left breast: Multi-positional exam fibrocystic changes no dominant masses or nodules of concern; nipple piercing site no evidence of drainage Left axilla: No adenopathy of concern Testicular exam: No lumps in right or left testicle Assessment and Plan Assessment: Impression: Most likely infection at right nipple piercing site Hypertension Blood thinner High cholesterol Plan: Will start antibiotic; keflex Cultures obtained of the drainage from the nipple piercing site on right breast Mammogram, bilateral breast ultrasound follow up after these are done Cc: Dr. Dias
== END ==
LOC: WWCWWP 13:14
PROVIDERS: ATTEND Surgery
DX: N64.52 Nipple discharge (principal); E66.3 Overweight; E78.00 Pure hypercholesterolemia, unspecified; I10 Essential (primary) hypertension; K21.9 Gastro-esophageal reflux disease without esophagitis; F17.210 Nicotine dependence, cigarettes, uncomplicated; Z79.82 Long term (current) use of aspirin; Z79.02 Long term (current) use of antithrombotics/antiplatelets; Z79.899 Other long term (current) drug therapy; Z68.31 Body mass index [BMI] 31.0-31.9, adult
CPT/HCPCS: 87070; 87075; 87205

== ENCOUNTER → 2023-11-05 | Outpatient (CLI) | payer MEDICARE ==
--- NOTE | 2023-11-05 10:50 | USB ---
Reason for Exam: Clinical finding. Patient History: 10/02/2021, US discontinued breast bx RT on the right side. Technique: Method: Targeted. Prior Study Comparison: 10/02/2021 Bilateral Diagnostic Mammogram, [facility]. Findings: The periareolar of both breasts, the axilla of both breasts and the retroareolar of both breasts were scanned. Targeted subareolar and periareolar ultrasound on both sides including scanning of the axilla. There is mild subareolar gynecomastia on the right as seen on mammogram. No solid or cystic lesion or duct ectasia. No axillary adenopathy seen. Overall Assessment: Benign, BI-RAD 2 Management: Clinical Management of both breasts in 1 year. If any palpable arises, the patient can return for reassessment. Further clinical management is recommended for reported bilateral nipple discharge. Results were given to the patient verbally at the time of exam. Electronically signed and approved by: Steve Wiseman M.D. Radiologist
--- NOTE | 2023-11-05 14:27 | P.PN ---
Subjective Progress Note Date: 11/05/23 Principal diagnosis: pain right breast Adonis is a 63 year old male seen for pain and nodularity right breast. He was noted to have drainage form amina right breast nipple piercing site on his visit of 10-14-23. He was treated with antibiotics. He had a bilateral mammogram and ultrasound on 10-05-23. Mild right gynecomastia noted. Official reading pending. The nipple discharge on the right has stopped. Objective - Additional findings Additional findings: Repeat examination of the right breast: Right nipple area no longer has any discharge There is decreased discomfort at the site no more swelling or erythema of the breast Assessment and Plan Assessment: Impression/Plan: Patient improved with antibiotic Keflex from right nipple discharge Await official reading on the mammogram Follow-up as needed if the mammogram report is benign CC: Dr. Dias
== END | disposition home or self-care (01) ==
LOC: RADMAMWWP 09:36
PROVIDERS: ATTEND Surgery
DX: N64.52 Nipple discharge (principal)
CPT/HCPCS: 77062; 77066

== ENCOUNTER → 2023-11-05 | Outpatient (CLI) | payer MEDICARE ==
[2023-11-05 14:36] VITALS: BP 147/84; PULSE 85; RESP 16; TEMP 98.4
== END ==
LOC: WWCWWP 09:31
PROVIDERS: ATTEND Surgery
DX: N64.52 Nipple discharge (principal); N64.4 Mastodynia; N62 Hypertrophy of breast; N63.10 Unspecified lump in the right breast, unspecified quadrant; F17.200 Nicotine dependence, unspecified, uncomplicated; Z79.82 Long term (current) use of aspirin